=== PATIENT | female | born 1990 | race Caucasian/White ===

== ENCOUNTER 2021-03-29 13:46 | Emergency (ER) | payer BC, MEDICAID, SELFPAY ==
[2021-03-29 13:47] VITALS: BP 107/73; PULSE 81; RESP 16; TEMP 36.4; O2SAT 98; BMI 24.7
[2021-03-29 14:02] LABS: Basophils % 0.5 %; Eosinophils # 0.1 10^3/uL (0.0-0.8); Eosinophils % 1.6 %; Hematocrit 35.5 % (37.0-47.0); Hemoglobin 12.4 g/dL (11.5-15.3); Lymphocytes # 1.6 10^3/uL (0.8-4.8); Lymphocytes % 36.2 %; Mean Corpuscular HGB Conc 34.9 g/dL (30.0-36.0); Mean Corpuscular Hemoglobin 31.2 pg (28.0-34.0); Mean Corpuscular Volume 89.4 fl (81-99); Monocytes # 0.4 10^3/uL (0.2-0.9); Monocytes % 8.1 %; Neutrophils % 53.4 %; Nucleated Red Blood Cells % 0 %; Platelet Count 239 10^3/cmm (130-400); Red Blood Count 3.97 10^6/uL (4.1-5.3); Red Cell Distribution Width 11.4 % (12.1-15.1); White Blood Count 4.3 10^3/uL (4.0-10.0)
[2021-03-29 14:16] LABS: Add Urine Microscopic? NO; Charge for UA Resulting for Rev
[2021-03-29 14:36] LABS: Bilirubin Urine Neg (Negative); Blood Urine Neg (Negative); Glucose Urine UA Norm (Normal); Ketones Urine Negative (Negative); Leukocyte Esterase Urine Negative (Negative); Nitrate Urine Negative (Negative); Protein Urine Neg (Negative); Specific Gravity, Urine 1.015 (1.005-1.030); Urine Appearance Clear (CLEAR); Urine Color Yellow (Yellow); Urobilinogen Urine Norm (Negative); pH Urine 5 (5-7)
[2021-03-29 15:09] LABS: Alanine Aminotransferase 17 U/L (0-33); Albumin Level 4.4 g/dL (3.5-5.2); Alkaline Phosphatase 35 IU/L (35-105); Aspartate Amino Transferase 22 U/L (0-32); Blood Urea Nitrogen 11 mg/dL (6-20); Calcium 9.2 mg/dL (8.5-10.5); Carbon Dioxide 20 mmol/L (22-29); Creatinine Clr Calc Pharmacy 150.3134; Globulin 2.5 g/dL (1.3-4.6); Glomerular Filtration Rate 146.9 mL/min (90-130); Glucose 100 mg/dL (65-115); Total Bilirubin 0.3 mg/dL (0.15-1.2); Total Protein 6.9 g/dL (6.6-8.7)
[2021-03-29 15:20] LABS: Anion Gap 19.1 (5-19); Chloride 104 mmol/L (98-107); Osmolality Calculated 287 mOsm/kg (285-295); Potassium 4.1 mmol/L (3.5-5.1); Sodium 139 mmol/L (136-145)
--- NOTE | 2021-03-29 17:00 | ED_ITS ---
HPI - Neuro Symptoms/Deficit General: Chief Complaint: Neuro Symptoms/Deficit Stated Complaint: . Time Seen by Provider: 03/29/21 15:43 History of Present Illness: HPI Narrative: 30-year-old female arrives the emergency room complaining of yesterday having a headache there is associated slurred speech and confusion. All of the symptoms have resolved now. She has no focal neurologic deficits no specific complaints. She did contact her primary care doctor yesterday and was advised to go to the emergency room but she elected not to. No previous history of stroke. She does use CBD Gummies and states that her she tested positive for marijuana when she went to another local ER for evaluation for chest pain in the last several days. Difficulty with speech vision or hearing at this time. All of the symptoms she had yesterday have resolved Onset (ago): day(s) Location: speech History of same: No Severity: mild Quality: weak Relieving factors: none and time Exacerbating factors: none Associated symptoms: Deny chest pain, cough, diaphoresis, fevers/chills, headache(s), anorexia, malaise, nausea, seizures, short of breath, syncope, tingling, vertigo, vomiting or weakness Treatments Prior to Arrival: none Review of Systems Const: Denies: malaise or diaphoresis ENMT: Denies: throat pain, ear or mastoid pain, nasal discharge or nasal congestion Card: Denies: chest pain or syncope Resp: Denies: dyspnea, productive cough or non-productive cough GI: Denies: nausea or vomiting : Denies: flank pain, difficulty voiding, dysuria, urinary frequency or urinary urgency Skin/Breast: Denies: rash or pruritus Neuro: Denies: headache(s) or vertigo [facility] Female Reproductive History: Date of last menstrual period: 02/13/21 NIH stroke score NIHSS: Level Of Consciousness - 1a: 0 Level Of Consciousness Questions - 1b: Both Correct Level Of Consciousness Commands - 1c: Both Correct Best Gaze - 2: Normal Visual Ware - 3: No Visual Loss Facial Palsy - 4: Normal Motor Arm Right - 5: No Drift Motor Arm Left - 5: No Drift Motor Leg Right - 6: No Drift Motor Leg Left - 6: No Drift Limb Ataxia - 7: Absent Sensory - 8: Normal Best Language - 9: No Aphasia Dysarthia - 10: Normal Extinction And Inattention - 11: 0 Score: Total Score: 0 Physical Exam Const: COMMON NORMALS: no acute distress GENERAL APPEARANCE: cooperative and comfortable ORIENTATION/CONSCIOUSNESS: Yes awake, Yes oriented to person, Yes oriented to place and Yes oriented to time HENMT: COMMON NORMALS: normocephalic, atraumatic, hearing grossly normal bilaterally, external ears normal, EAC's normal, TM's normal bilaterally, Normal nasal mucous membranes and turbinates present, moist oral mucous membranes and oropharynx normal HEAD & SCALP: normocephalic and atraumatic NOSE: Normal nasal mucous membranes and turbinates present EXTERNAL EAR: Yes external ears normal EXTERNAL AUDITORY CANAL: EAC's normal TYMPANIC MEMBRANE: TM's normal bilaterally Eye: COMMON NORMALS: Equal, round and reactive pupils present, EOMs intact bilaterally, conjunctivae normal and no scleral icterus CONJUNCTIVA: Yes conjunctivae normal PUPIL: Yes Equal, round and reactive pupils present Neck/C-Spine: COMMON NORMALS: no lymphadenopathy, supple and no JVD Resp: COMMON NORMALS: normal respiratory effort, No retractions, No use of accessory muscles and clear to auscultation bilaterally AUSCULTATION: clear to auscultation bilaterally Cardio: COMMON NORMALS: no JVD, regular rate, regular rhythm and No murmurs present (Cardio) RATE: regular rate RHYTHM: regular rhythm GI: COMMON NORMALS: Soft to palpation and No hepatosplenomegaly present AUSCULTATION: Yes normoactive bowel sounds PALPATION: Yes Soft to palpation, No Tenderness to palpation present (GI), No Guarding due to palpation present (GI) and Yes No hepatosplenomegaly present Extremity: COMMON NORMALS: normal to inspection, capillary refill normal, no clubbing, cyanosis or edema, no calf tenderness and no pedal edema Neuro: SENSORIUM/ORIENTATION: Yes oriented to person, Yes oriented to place and Yes oriented to time Skin: COMMON NORMALS: no rashes or lesions noted GENERAL SKIN EXAM: no rashes or lesions noted Course Vital Signs: Vital signs: Vital Signs Temperature 97.5 F L 03/29/21 13:47 Pulse Rate 76 03/29/21 18:21 Respiratory Rate 17 03/29/21 18:21 Blood Pressure 105/72 03/29/21 18:21 Pulse Oximetry 98 03/29/21 18:21 MDM - Neuro Symptoms/Deficit MDM Narrative: Medical decision making narrative: Labs and imaging reviewed is found in the chart. Patient appears to have had a migraine variant she has no headache now no other symptoms CT is unremarkable encouraged her to follow-up with her primary care provider if this persist she may need more advanced imaging or neurologic referral or referral. Lab Data: Labs: Lab Results 03/29/21 03/29/21 03/29/21 13:56 13:57 13:57 WBC 4.3 10^3/uL 10^3/ uL (4.0-10.0) RBC 3.97 10^6/uL L 10 ^6/uL (4.1-5.3) Hgb 12.4 g/dL g/dL (11.5-15.3) Hct 35.5 % L % (37.0-47.0) MCV 89.4 fl fl (81-99) MCH 31.2 pg pg (28.0-34.0) MCHC 34.9 g/dL g/dL (30.0-36.0) RDW 11.4 % L % (12.1-15.1) Plt Count 239 10^3/cmm 10^3 /cmm (130-400) MPV 9.0 fL fL (7.4-10.4) Neut % (Auto) 53.4 % % Lymph % (Auto) 36.2 % % [place] % (Auto) 8.1 % % Eos % (Auto) 1.6 % % Baso % (Auto) 0.5 % % Neut # (Auto) 2.30 10^3/uL 10^3 /uL (1.8-7.7) Lymph # (Auto) 1.6 10^3/uL 10^3/ uL (0.8-4.8) [place] # (Auto) 0.4 10^3/uL 10^3/ uL (0.2-0.9) Eos # (Auto) 0.1 10^3/uL 10^3/ uL (0.0-0.8) Baso # (Auto) 0.0 10^3/uL 10^3/ uL (0.0-0.1) Nucleated RBC % (a uto) 0 % % Nucleated RBCs # 0.0 /100WBC /100W BC Sodium 139 mmol/L mmol/L (136-145) Potassium 4.1 mmol/L mmol/L (3.5-5.1) Chloride 104 mmol/L mmol/L (98-107) Carbon Dioxide 20 mmol/L L mmol/ L (22-29) Anion Gap 19.1 H (5-19) BUN 11 mg/dL mg/dL (6-20) Creatinine 0.5 mg/dL mg/dL (0.5-0.9) GFR Calculation 146.9 mL/min H mL /min (90-130) Glucose 100 mg/dL mg/dL (65-115) Calculated Osmolal ity 287 mOsm/kg mOsm/ kg (285-295) Calcium 9.2 mg/dL mg/dL (8.5-10.5) Total Bilirubin 0.3 mg/dL mg/dL (0.15-1.2) AST 22 U/L U/L (0-32) ALT 17 U/L U/L (0-33) Alkaline Phosphata se 35 IU/L IU/L (35-105) Total Protein 6.9 g/dL g/dL (6.6-8.7) Albumin 4.4 g/dL g/dL (3.5-5.2) Globulin 2.5 g/dL g/dL (1.3-4.6) Urine Color Yellow (Yellow) Urine Appearance Clear (CLEAR) Urine pH 5 (5-7) Ur Specific Gravit y 1.015 (1.005-1.030) Urine Protein Neg (Negative) Urine Glucose (UA) Norm (Normal) Urine Ketones Negative (Negative) Urine Blood Neg (Negative) Urine Nitrate Negative (Negative) Urine Bilirubin Neg (Negative) Urine Urobilinogen Norm mg/dL mg/dL (Negative) Ur Leukocyte Unique ase Negative (Negative) Discharge Plan Discharge Patient Disposition: Home Clinical Impression: Migraine variant Condition: Stable Discharge Orders: Discharge ED (Routine); Ordered 03/29/21 Ordered By: Nelson Brown Discharge Diet: Usual diet Discharge Activity: Resume usual activity Patient Instructions: Opioid Safety Activity Restrictions/Additional Instructions: This management will call to make arrangements for her to follow-up with a primary care physician. Coding Level of Care Code ED Fireworks Maker for Cynthia Martin
--- NOTE | 2021-03-29 17:00 | CTR_ITS ---
PROCEDURE INFORMATION: Exam: CT Head Without Contrast Exam date and time: 03/29/2021 5:00 PM Age: 30 years old Clinical indication: Other: Elevated BP; Additional info: Headache/weakness TECHNIQUE: Imaging protocol: Computed tomography of the head without contrast. Radiation optimization: All CT scans at this facility use at least one of these dose optimization techniques: automated exposure control; mA and/or kV adjustment per patient size (includes targeted exams where dose is matched to clinical indication); or iterative reconstruction. COMPARISON: No relevant prior studies available. RADIATION DOSE METRICS: Total DLP (mGy-cm): 826.17 FINDINGS: Brain: Normal. No hemorrhage. Unremarkable white matter. No mass effect. Cerebral ventricles: No ventriculomegaly. Paranasal sinuses: Visualized sinuses are unremarkable. No fluid levels. Mastoid air cells: Visualized mastoid air cells are well aerated. Bones/joints: Unremarkable. No acute fracture. Soft tissues: Unremarkable. CT/CT head wo con* [id number] IMPRESSION: No acute intracranial abnormality.
[2021-03-29 18:21] VITALS: BP 105/72; PULSE 76; RESP 17; O2SAT 98
--- NOTE | 2021-04-09 15:36 | DCPLANNER ---
manager audio had message to speak with patient about getting established and scheduling a follow up appointment with a primary care physician. manager audio unable to speak with patient at this time.
== END 2021-03-29 18:23 | disposition home or self-care (01) ==
PROVIDERS: Family Medicine; Emergency Provider Emergency Medicine
DX: G43.809 Other migraine, not intractable, without status migrainosus (principal)
CPT/HCPCS: 36415; 70450; 80053; 81003; 85025; 99283

== ENCOUNTER → 2021-09-12 13:46 | Outpatient (BNVA) | payer BC, MEDICAID, SELFPAY | PROVIDERS: Referring Provider Nurse Practitioner Family; Visit Provider Specialist | DX: S62.357A Nondisplaced fracture of shaft of fifth metacarpal bone, left hand, initial encounter for closed fracture (principal); W22.8XXA Striking against or struck by other objects, initial encounter; M79.642 Pain in left hand | CPT/HCPCS: 26600; 73130; 99203 ==

== ENCOUNTER 2021-09-12 15:58 | Outpatient (CLI) | payer BC, MEDICAID, SELFPAY | END 2021-09-12 15:59 | disposition home or self-care (01) | LOC: SPT 15:58 | PROVIDERS: Visit Provider Specialist | DX: Z46.89 Encounter for fitting and adjustment of other specified devices (principal); S62.347D Nondisplaced fracture of base of fifth metacarpal bone, left hand, subsequent encounter for fracture with routine healing; X58.XXXD Exposure to other specified factors, subsequent encounter | CPT/HCPCS: 97760; L3984 ==

== ENCOUNTER → 2021-10-10 11:40 | Outpatient (BNVA) | payer BC, MEDICAID, SELFPAY | PROVIDERS: Visit Provider Specialist | DX: R76.8 Other specified abnormal immunological findings in serum (principal); Z11.59 Encounter for screening for other viral diseases; M25.50 Pain in unspecified joint; R53.83 Other fatigue; S62.357A Nondisplaced fracture of shaft of fifth metacarpal bone, left hand, initial encounter for closed fracture; W22.8XXA Striking against or struck by other objects, initial encounter; S62.307A Unspecified fracture of fifth metacarpal bone, left hand, initial encounter for closed fracture | CPT/HCPCS: 73130; 82550; 82784; 83516; 83735; 84100; 85651; 86140; 86704; 86803; 87340; 99024; 99203; 99204 ==

== ENCOUNTER 2021-12-08 08:30 | Emergency (ER) | payer OTHER, BC, MEDICAID, SELFPAY ==
[2021-12-08 08:33] VITALS: BP 115/76; PULSE 86; RESP 16; TEMP 36.8; O2SAT 100; BMI 24.7
--- NOTE | 2021-12-08 08:38 | PC.NURSE ---
Pt reports she is 9 weeks and is having mild intermittent abdominal cramping starting today. denies any vaginal bleeding. reports hx of miscarriage and that this feels the same. Denies dysuria, fevers, or vomiting. reports nausea. LBM 12/07/21. Pt speech clear, speaking in complete sentences without difficulty. skin is pink/warm/dry. physician at bedside for bedside ultrasound.
--- NOTE | 2021-12-08 08:42 | ED_ITS ---
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 Associated Symptoms: Denies chills, diarrhea, dysuria, fever(s), nausea and vomiting Related Data: Date of Last Menstrual Period: 02/13/21 Review of Systems Const: Denies: fever(s), chills, body aches or change in appetite Eyes: Denies: blurry vision or eye discomfort ENMT: Denies: throat pain or dental pain Card: Denies: chest pain Resp: Denies: dyspnea GI: Denies: abdominal pain, nausea, vomiting or diarrhea : Denies: dysuria Musc: Denies: neck pain or back pain Skin/Breast: Denies: rash Neuro: Denies: headache(s) Psych: Denies: depression Jarek/Lymph: Denies: easy bruising All/Imm: Denies: urticaria PFSH ED PFSH: Medical History (Updated 12/08/21 @ 08:42 by Ag Delgado MD) Asthma Family History Father Hypertension Social History Smoking and tobacco status: never smoked Second hand smoke exposure: No Smoking risk assessment/counseling performed?: No Alcohol intake: current Alcohol intake frequency: 3 or more drinks per day Alcohol type: other Desire information about alcohol rehabilitation?: No Counseling given: No Adopted: No Caregiver/support person: Yes Lives independently: No Household members: spouse and children Housing: House Marital status: Number of children: 3 Highest education level completed: Associate Degree: Academic Program service: No Current occupational status: unemployed Current occupational exposures/hazards: No Pets and animals: Yes History of recent travel: No Sexually active: Yes Current gender identity: Female Special ashwin needs: No Agree to transfusion: Yes Female Reproductive History: Date of last menstrual period: 02/13/21 Physical Exam Const: COMMON NORMALS: no acute distress, patient oriented x3 and healthy appearing HENMT: COMMON NORMALS: normocephalic and atraumatic HEAD & SCALP: normocephalic and atraumatic Eye: COMMON NORMALS: Equal, round and reactive pupils present and EOMs intact bilaterally PUPIL: Yes Equal, round and reactive pupils present Neck/C-Spine: COMMON NORMALS: full ROM and supple Chest: COMMONS NORMALS: normal inspection of the chest and normal palpation of entire chest wall Resp: COMMON NORMALS: normal respiratory effort, No retractions, No use of accessory muscles and clear to auscultation bilaterally AUSCULTATION: clear to auscultation bilaterally Cardio: COMMON NORMALS: regular rate, regular rhythm and No murmurs present (Cardio) RATE: regular rate RHYTHM: regular rhythm GI: COMMON NORMALS: Normal to inspection, nondistended, normoactive bowel sounds present, Soft to palpation, non-tender and no masses PALPATION: Yes Soft to palpation Extremity: COMMON NORMALS: normal to inspection and full ROM Neuro: COMMON NORMALS: patient oriented x3, moves all extremities and no focal motor deficits Psych: COMMON NORMALS: mental status grossly normal, Normal thought process present and cooperative THOUGHT PROCESS: Normal thought process present Skin: COMMON NORMALS: no rashes or lesions noted and no wounds GENERAL SKIN EXAM: no rashes or lesions noted Course Vital Signs: Vital signs: Vital Signs Temperature 98.2 F 12/08/21 08:33 Pulse Rate 86 12/08/21 08:33 Respiratory Rate 16 12/08/21 08:33 Blood Pressure 115/76 12/08/21 08:33 Pulse Oximetry 100 12/08/21 08:33 Oxygen Delivery Me thod 12/08/21 08:33 MDM - Abdominal Pain Medical Decision Making Patient presents here with abdominal pain likely some round ligament pain she is mainly concerned as she has had 2 previous miscarriages bedside ultrasound here showed an IUP consistent with dates heart rate 146 she has no tenderness on exam no urinary symptoms no bleeding no signs of appendicitis she is stable for discharge she sees her OB next Friday she is to follow-up then return if worsening she understands agrees plan. Discharge Plan Discharge Patient Disposition: Home Clinical Impression: Abdominal pain affecting Condition: Stable Prescriptions: No Action CBD gummies PO naproxen 500 mg tablet 500 mg PO BID (DME) Fast form cast See Rx Instructions .ROUTE .MEDSUPPLY Qty: 1 0RF Rx Instructions: As directed hydroxychloroquine 200 mg tablet 200 mg PO BID Qty: 60 1RF Discharge Orders: Discharge ED (Routine); Ordered 12/08/21 Ordered By: Ag Delgado Referrals: Corina Powell DO [Primary Care Provider] - Discharge Diet: Advance as tolerated Discharge Activity: Resume usual activity Patient Instructions: Abdominal Pain (ED) Coding Level of Care Code ED Land Le[employer] Information Clerk for Cynthia Martin
[2021-12-08 08:54] VITALS: BP 102/56; PULSE 81; RESP 16; O2SAT 98
== END 2021-12-08 08:55 | disposition home or self-care (01) ==
PROVIDERS: Emergency Provider Emergency Medicine; PCP Family Medicine
DX: O26.891 Other specified pregnancy related conditions, first trimester (principal); R10.9 Unspecified abdominal pain; Z3A.09 9 weeks gestation of pregnancy
CPT/HCPCS: 99283

== ENCOUNTER → 2021-12-21 13:20 | Outpatient (BNVA) | payer OTHER, BC, MEDICAID, SELFPAY | PROVIDERS: PCP Family Medicine; Visit Provider Obstetrics & Gynecology | DX: Z34.90 Encounter for supervision of normal pregnancy, unspecified, unspecified trimester (principal) | CPT/HCPCS: 80307; 84315; 87086 ==

== ENCOUNTER → 2022-01-10 14:00 | Outpatient (BNVA) | payer OTHER, BC, MEDICAID, SELFPAY | PROVIDERS: PCP Family Medicine; Visit Provider Obstetrics & Gynecology | DX: O09.899 Supervision of other high risk pregnancies, unspecified trimester (principal); Z3A.00 Weeks of gestation of pregnancy not specified | CPT/HCPCS: 80307; 81000; 84315; 84443; 85025; 86592; 86762; 86803; 86850; 86900; 87086; 87340; 87491; 87591; 87661; 87806; 88175 ==

== ENCOUNTER → 2022-03-01 10:00 | Outpatient (BNVA) | payer BC, MEDICAID, SELFPAY | PROVIDERS: PCP Family Medicine; Visit Provider Obstetrics & Gynecology | DX: O09.899 Supervision of other high risk pregnancies, unspecified trimester (principal); Z3A.00 Weeks of gestation of pregnancy not specified | CPT/HCPCS: 81000 ==

== ENCOUNTER → 2022-03-22 09:00 | Outpatient (BNVA) | payer BC, MEDICAID, SELFPAY | PROVIDERS: PCP Family Medicine; Visit Provider Obstetrics & Gynecology | DX: O09.899 Supervision of other high risk pregnancies, unspecified trimester (principal); Z3A.00 Weeks of gestation of pregnancy not specified | CPT/HCPCS: 81000 ==

== ENCOUNTER 2022-04-14 22:25 | Emergency (ER) | payer BC, MEDICAID, SELFPAY ==
[2022-04-14 22:39] VITALS: BP 103/73; PULSE 128; RESP 18; TEMP 36.7; O2SAT 100
[2022-04-14 22:57] VITALS: BP 116/78; PULSE 124; RESP 23; O2SAT 100
--- NOTE | 2022-04-14 22:57 | CTR_ITS ---
PROCEDURE INFORMATION: Exam: CT Head Without Contrast Exam date and time: 04/15/2022 12:14 AM Age: 31 years old Clinical indication: Altered mental status/memory loss and other: 29 weeks ; Additional info: AMS in patient TECHNIQUE: Imaging protocol: Computed tomography of the head without contrast. Radiation optimization: All CT scans at this facility use at least one of these dose optimization techniques: automated exposure control; mA and/or kV adjustment per patient size (includes targeted exams where dose is matched to clinical indication); or iterative reconstruction. COMPARISON: CT head wo con* [id number] 03/29/2021 5:09 PM RADIATION DOSE METRICS: Total DLP (mGy-cm): 1013.28 FINDINGS: Brain: Normal. No hemorrhage. Unremarkable white matter. No mass effect. Cerebral ventricles: No ventriculomegaly. Paranasal sinuses: Visualized sinuses are unremarkable. No fluid levels. Mastoid air cells: Visualized mastoid air cells are well aerated. Bones/joints: Unremarkable. No acute fracture. Soft tissues: Unremarkable. CT/CT head wo con* [id number] IMPRESSION: No acute intracranial abnormality.
--- NOTE | 2022-04-14 22:57 | XRR_ITS ---
PROCEDURE INFORMATION: Exam: XR Chest Exam date and time: 04/15/2022 12:26 AM Age: 31 years old Clinical indication: Other: AMS / 29 week ; Patient HX: AMS in 29 week - shielded abd TECHNIQUE: Imaging protocol: Radiologic exam of the chest. Views: 1 view. COMPARISON: No relevant prior studies available. FINDINGS: Lungs: Unremarkable. No consolidation. Pleural spaces: Unremarkable. No pleural effusion. No pneumothorax. Heart/Mediastinum: Unremarkable. No cardiomegaly. Bones/joints: Unremarkable. XR/XR chest 1V portable [id number] IMPRESSION: No acute findings.
--- NOTE | 2022-04-14 22:59 | USR_ITS ---
PROCEDURE INFORMATION: Exam: US Biophysical Profile Without Non-Stress Test Exam date and time: 04/14/2022 11:26 PM Age: 31 years old Clinical indication: Other: Non responsive mother; ; Additional info: Altered mental status in patient 28wks cramping TECHNIQUE: Imaging protocol: US biophysical profile without non-stress testing. COMPARISON: US OB >= 14 weeks fetus [facility] 02/08/2022 2:56 PM FINDINGS: heart rate: 150 bpm presentation: Breech Placenta: Posterior placenta . Amniotic fluid: Amniotic fluid volume is normal. Amniotic fluid index: ITZ is 14.4 cm. BIOPHYSICAL PROFILE: breathing movement (BPP): 2/2 body movement (BPP): 2/2 tone (BPP): 2/2 Amniotic fluid (BPP): 2/2 Biophysical profile score (BPP): 8/8 MATERNAL ANATOMY: Cervix: Cervical length measures 4.5 cm. US/US OB BPP wo NST [id number] IMPRESSION: 1. Normal biophysical profile score 8/8. 2. Closed 4.5 cm cervix. 3. heart beat 150 bpm. 4. Normal 14.4 cm amniotic fluid index. 5. Posterior placenta. 6. Closed 4.5 cm cervix.
[2022-04-14 23:14] LABS: Basophils % 0.3 %; Eosinophils # 0.1 10^3/uL (0.0-0.8); Eosinophils % 0.7 %; Hematocrit 34.6 % (37.0-47.0); Hemoglobin 11.9 g/dL (11.5-15.3); Lymphocytes # 2.3 10^3/uL (0.8-4.8); Lymphocytes % 30.5 %; Mean Corpuscular HGB Conc 34.4 g/dL (30.0-36.0); Mean Corpuscular Hemoglobin 31.2 pg (28.0-34.0); Mean Corpuscular Volume 90.8 fl (81-99); Mean Platelet Volume 9.6 fL (7.4-10.4); Monocytes # 0.7 10^3/uL (0.2-0.9); Monocytes % 9.2 %; Neutrophils # 4.41 10^3/uL (1.8-7.7); Neutrophils % 58.8 %; Nucleated Red Blood Cells % 0 %; Platelet Count 235 10^3/cmm (130-400); Red Blood Count 3.81 10^6/uL (4.1-5.3); White Blood Count 7.5 10^3/uL (4.0-10.0)
[2022-04-14] MEDS: midazolam 1 mg/mL INJ 2 mL 2 MG IVP (23:18)
[2022-04-14] MEDS: sodium chloride 0.9% 1,000 ML 999 ML IV (23:18)
[2022-04-14] MEDS: magnesium sulfate premix 4 GM/100 ML PREMIX IV (23:19)
--- NOTE | 2022-04-14 23:21 | ECG_ITS ---
[facility] Test Date: 2022-04-14 Pat Name: Mariah Cadet Department: Room: Gender: Female Food Products Tester: : 1990 Requested By: Juan C Haider Order Number: [id number] MD: Shashank Roche M.D. Measurements Intervals [place] Rate: 108 P: 39 HI: 170 QRS: 11 QRSD: 89 T: 15 QT: 330 QTc: 444 Interpretive Statements SINUS TACHYCARDIA No previous ECG available for comparison Electronically Signed On 04-16-2022 7:42:42 SUPERVISOR PLEATING by Shashank Roche M.D. [id number]
--- NOTE | 2022-04-14 23:27 | W.ED.AMS ---
HPI - Altered Mental Status General: Chief Complaint: Altered Mental Status Stated Complaint: sob,chills,shaking Time Seen by Provider: 04/14/22 22:52 History of Present Illness: 31-year-old female who is 28 weeks . Earlier in the evening, she complained of being scared to her . She was having chills and some shakes as well. She had been having contractions she says on and off throughout the day. She denied fever. There was no vomiting. Later this evening at home, somewhere around an hour prior to arrival, she became less responsive. She would not respond to her 's questions. She would not follow commands. She does seem to make some movements, and is hyperventilating. She presents essentially the same, hyperventilating with decreased responsiveness, not following commands. Timing confirmed by: spouse Severity: moderate Consistency of symptoms: Constant Context: other Associated symptoms: Reports other Review of Systems Const: Denies: fever(s) Eyes: Denies: change in vision ENMT: Denies: throat pain Card: Reports: chest pain (Earlier today) Resp: Denies: dyspnea, productive cough or non-productive cough GI: Denies: abdominal pain or vomiting : Denies: flank pain Skin/Breast: Denies: rash Neuro: Reports: confusion, behavioral changes and seizure-like activity; Denies: headache(s) PFSH ED PFSH: Medical History Asthma Headache, variant migraine Family History Father Hypertension Heart disease Grandfather Diabetes Stroke Other Thyroid disease Denies family history of Colon cancer Ovarian cancer Hypercholesteremia Breast cancer Uterine cancer Female Reproductive History: Date of last menstrual period: 02/13/21 Physical Exam Const: GENERAL APPEARANCE: ill appearing and diaphoretic ORIENTATION/CONSCIOUSNESS: Yes patient obtunded HENMT: COMMON NORMALS: normocephalic, atraumatic and Normal external nose present HEAD & SCALP: normocephalic and atraumatic FACE & SINUS: normal facial exam and face symmetric NOSE: Normal external nose present and Normal nares present Eye: COMMON NORMALS: Equal, round and reactive pupils present and conjunctivae normal CONJUNCTIVA: Yes conjunctivae normal PUPIL: Yes Equal, round and reactive pupils present Cardio: COMMON NORMALS: regular rate and regular rhythm RATE: regular rate RHYTHM: regular rhythm GI: COMMON NORMALS: Normal to inspection, nondistended, normoactive bowel sounds present and Soft to palpation PALPATION: Yes Soft to palpation OTHER: gravid uterus Neuro: SENSORIUM/ORIENTATION: Yes obtunded CRANIAL NERVES: Yes CN normal except as noted SPEECH: abnormal speech GAIT: Yes Unable to assess gait SENSORY EXAM: Yes extremities (intact) MOTOR EXAM: Abnormal muscle tone present DEEP TENDON REFLEXES: Right patellar reflex intensity grade: 3+ and Left patellar reflex intensity grade: 3+ Course Vital Signs: Vital signs: Vital Signs Temperature 98.0 F 04/14/22 22:39 Pulse Rate 108 H 04/15/22 01:23 Respiratory Rate 18 04/15/22 01:23 Blood Pressure 107/62 04/15/22 01:23 Pulse Oximetry 98 04/15/22 01:23 Oxygen Delivery Me thod 04/14/22 23:59 Oxygen Flow Rate 3 04/14/22 23:59 MDM - Altered Mental Status Medical Decision Making This is a patient with decreased responsiveness, not verbalizing or answering questions, not following commands. This has improved to some degree as time has gone on here in the ER. She presents tachycardic in the 120s. Blood pressures in the 1 teens to 120s. She is hyperreflexive on exam, that is significant. She has the appearance of a young lady who is postictal to some degree. She was given midazolam 2 mg initially IV with improvement in the hyper reflexive nests as well as the intermittent shaking she is experiencing. She is placed on 4 g magnesium sulfate bolus as well. Biophysical profile is done, and is normal. Fetus heart rate is 150s CBC is normal. Liver enzymes are normal. Uric acid is pending. Magnesium is 1.9. She is seen in conjunction with our review scheduling coordinator on-call. There is some concern given the hyperreflexive numbness, shakiness, and postictal appearing state that this could be an eclamptic patient. We are not a high school football coach center should this young lady need to deliver. We have spoken with [facility]. We are awaiting a callback. Spoke with Dr. Maldonado at [facility] she has agreed to take in transfer to L&D there. Patient is much improved clinically. She is having full conversations at this point with our OB team in the room. Fetus continues to look good on the monitor. EMS is on the way for transfer Lab Data 04/14/22 22:52 04/14/22 22:52 Radiology Impressions Chest X-Ray 04/14/22 22:57 IMPRESSION: No acute findings. Head CT 04/14/22 22:57 IMPRESSION: No acute intracranial abnormality. Obstetrics US/Biophysical Profile 04/14/22 22:59 IMPRESSION: 1. Normal biophysical profile score 8/8. 2. Closed 4.5 cm cervix. 3. heart beat 150 bpm. 4. Normal 14.4 cm amniotic fluid index. 5. Posterior placenta. 6. Closed 4.5 cm cervix. Laboratory Results WBC 7.5 10^3/uL (4.0-10.0) 04/14/22 22:52 RBC 3.81 10^6/uL (4.1-5.3) L 04/14/22 22:52 Hgb 11.9 g/dL (11.5-15.3) 04/14/22 22:52 Hct 34.6 % (37.0-47.0) L 04/14/22 22:52 MCV 90.8 fl (81-99) 04/14/22 22:52 MCH 31.2 pg (28.0-34.0) 04/14/22 22:52 MCHC 34.4 g/dL (30.0-36.0) 04/14/22 22:52 RDW 12.0 % (12.1-15.1) L 04/14/22 22:52 Plt Count 235 10^3/cmm (130-400) 04/14/22 22:52 MPV 9.6 fL (7.4-10.4) 04/14/22 22:52 Neut % (Auto) 58.8 % 04/14/22 22:52 Lymph % (Auto) 30.5 % 04/14/22 22:52 Blount % (Auto) 9.2 % 04/14/22 22:52 Eos % (Auto) 0.7 % 04/14/22 22:52 Baso % (Auto) 0.3 % 04/14/22 22:52 Neut # (Auto) 4.41 10^3/uL (1.8-7.7) 04/14/22 22:52 Lymph # (Auto) 2.3 10^3/uL (0.8-4.8) 04/14/22 22:52 Blount # (Auto) 0.7 10^3/uL (0.2-0.9) 04/14/22 22:52 Eos # (Auto) 0.1 10^3/uL (0.0-0.8) 04/14/22 22:52 Baso # (Auto) 0.0 10^3/uL (0.0-0.1) 04/14/22 22:52 Nucleated RBC % (auto) 0 % 04/14/22 22:52 Nucleated RBCs # 0.0 /100WBC 04/14/22 22:52 Specimen Type Arterial 04/14/22 22:58 Sample Site Radial, left 04/14/22 22:58 ABG pH 7.45 (7.35-7.45) 04/14/22 22:58 ABG pCO2 29.1 mmHg (35-45) L 04/14/22 22:58 ABG pO2 138.0 mmHg (80.0-100.0) H 04/14/22 22:58 ABG HCO3 20.3 mmol/L (22-26) L 04/14/22 22:58 ABG Base Excess -2.8 mmol/L (-2.0-2.0) L 04/14/22 22:58 Amrc Test Pos 04/14/22 22:58 Hematocrit 32.9 % (37-47) L 04/14/22 22:58 O2 Delivery Device Nc 04/14/22 22:58 O2 Liters/Min 3.0 % 04/14/22 22:58 Licensed Vocational Nurse ID [email or web address] 04/14/22 22:58 Sodium 132 mmol/L (136-145) L 04/14/22 22:52 Potassium 3.6 mmol/L (3.5-5.1) 04/14/22 22:52 Chloride 100 mmol/L (98-107) 04/14/22 22:52 Carbon Dioxide 18 mmol/L (22-29) L 04/14/22 22:52 Anion Gap 17.6 (5-19) 04/14/22 22:52 BUN 7 mg/dL (6-20) 04/14/22 22:52 Creatinine 0.5 mg/dL (0.5-0.9) 04/14/22 22:52 GFR Calculation 145.9 mL/min (90-130) H 04/14/22 22:52 Glucose 141 mg/dL (65-115) H 04/14/22 22:52 Calculated Osmolality 274 mOsm/kg (285-295) L 04/14/22 22:52 Calcium 9.0 mg/dL (8.5-10.5) 04/14/22 22:52 Magnesium 1.9 mg/dL (1.7-2.3) 04/14/22 22:52 Total Bilirubin 0.2 mg/dL (0.15-1.2) 04/14/22 22:52 AST 16 U/L (0-32) 04/14/22 22:52 ALT 12 U/L (0-33) 04/14/22 22:52 Alkaline Phosphatase 45 U/L (35-105) 04/14/22 22:52 Total Protein 6.7 g/dL (6.6-8.7) 04/14/22 22:52 Albumin 4.0 g/dL (3.5-5.2) 04/14/22 22:52 Globulin 2.7 g/dL (1.3-4.6) 04/14/22 22:52 Urine Color Yellow (Yellow) 04/15/22 00:04 Urine Appearance Clear (CLEAR) 04/15/22 00:04 Urine pH 8 (5-7) H 04/15/22 00:04 Ur Specific [place] 1.015 (1.005-1.030) 04/15/22 00:04 Urine Protein Neg (Negative) 04/15/22 00:04 Urine Glucose (UA) Norm (Normal) 04/15/22 00:04 Urine Ketones Negative (Negative) 04/15/22 00:04 Urine Blood Neg (Negative) 04/15/22 00:04 Urine Nitrate Negative (Negative) 04/15/22 00:04 Urine Bilirubin Neg (Negative) 04/15/22 00:04 Prot Sulfosalicylic Acd Negative (Negative) 04/15/22 00:04 Urine Urobilinogen Neg mg/dL (Negative) 04/15/22 00:04 Ur Leukocyte Esterase Negative (Negative) 04/15/22 00:04 Urine Creatinine 34 mg/dL (28-217) 04/15/22 00:04 Urine Total Protein 4.0 mg/dL (0.0-20.0) 04/15/22 00:04 Urine Opiates Screen Negative ng/mL (Negative) 04/15/22 00:04 Ur Barbiturates Screen Negative ng/mL (Negative) 04/15/22 00:04 Ur Phencyclidine Scrn Negative ng/mL (Negative) 04/15/22 00:04 Ur Amphetamines Screen Negative ng/mL (Negative) 04/15/22 00:04 U Benzodiazepines Scrn Negative ng/mL (Negative) 04/15/22 00:04 Urine Cocaine Screen Negative ng/mL (Negative) 04/15/22 00:04 U Marijuana (THC) Screen Positive ng/mL (Negative) H 04/15/22 00:04 Ethyl Alcohol < 10 mg/dL (0-10) 04/14/22 22:52 Critical Care Time Critical Care Time: Critical Care Time: Yes Total Critical Care Time: 45 Attestation: This case had a high probability of a clinically significant, sudden, or life threatening deterioration of this patient's condition which required my full and direct attention, intervention and personal management. time is independent of any procedures performed. Discharge Plan Discharge Patient Disposition: Xfer Short-Term Hosp Clinical Impression: Generalized seizure Condition: Stable Referrals: Corina Powell DO [Primary Care Provider] - Coding Level of Care Code ED Recruiter for Chg Fwd Exam Detailed
[2022-04-14 23:29] VITALS: BP 109/69; PULSE 117; RESP 22; O2SAT 99
[2022-04-14 23:29] LABS: ABG PCO2 29.1 mmHg (35-45); ABG PH Result 7.45 (7.35-7.45); Arterial Blood Gas Hematocrit 32.9 % (37-47); Base Excess ABG -2.8 mmol/L (-2.0-2.0); Blood Gas Allen Test Pos; Blood Gas Sample Site Radial, left; Blood Gas Sample Type Arterial; HCO3 ABG 20.3 mmol/L (22-26); Oxygen Device NC
[2022-04-14] MEDS: dexamethasone 10 mg/mL INJ IM (23:34)
[2022-04-14 23:36] LABS: Alanine Aminotransferase 12 U/L (0-33); Alcohol Level < 10 mg/dL (0-10); Alkaline Phosphatase 45 U/L (35-105); Anion Gap 17.6 (5-19); Aspartate Amino Transferase 16 U/L (0-32); Blood Urea Nitrogen 7 mg/dL (6-20); Carbon Dioxide 18 mmol/L (22-29); Chloride 100 mmol/L (98-107); Globulin 2.7 g/dL (1.3-4.6); Glomerular Filtration Rate 145.9 mL/min (90-130); Glucose 141 mg/dL (65-115); Magnesium 1.9 mg/dL (1.7-2.3); Osmolality Calculated 274 mOsm/kg (285-295); Potassium 3.6 mmol/L (3.5-5.1); Sodium 132 mmol/L (136-145); Total Bilirubin 0.2 mg/dL (0.15-1.2); Total Protein 6.7 g/dL (6.6-8.7)
[2022-04-14 23:37] VITALS: BP 110/61; PULSE 129; RESP 22; O2SAT 99
[2022-04-14] MEDS: magnesium sulfate premix 20 GM/500 ML BAG IV (23:38)
[2022-04-14 23:59] VITALS: BP 124/61; PULSE 119; RESP 20; O2SAT 100
--- NOTE | 2022-04-15 00:02 | PC.NURSE ---
Digital Cervical Exam perform by this RN per verbal order from Dr Roland. Cervix is closed, thick, moderate consistency. No vaginal bleeding
--- NOTE | 2022-04-15 00:08 | PC.NURSE ---
patient taken to CT via stretcher by medicine tech
[2022-04-15 00:17] LABS: Add Urine Microscopic? NO; Charge for UA Resulting for Rev
--- NOTE | 2022-04-15 00:19 | PM.OBGYHP ---
Providers/Chief Complaint Admitting Physician: Rob MURPHY Primary LEGAL SPECIALIST: Dm BOOTH Primary Care Provider: Corina Powell DO Chief Complaint: sob,chills,shaking HPI LEGAL SPECIALIST History of Present Illness Mariah Cadet is a 31 year old female [id number] at 28wk IUP with AVERY 07/09/22 by 10wk . Pt seen in ER after presenting with who c/o pt having SOB, shaking at home with decrease ability to communicate in the car on the way to hospital. He states she c/o of getting very scared when all this occurred at home. states pt has been dread at home the last 3-4 days, denies LOF or vaginal bleeding. Upon observing pt in ER she appeared postictal, with upper and lower ext tremors, and unable to answer questions. her eyes were slightly open. Her Abd. soft, fundus appropriate for 28 wk IUP. Ext no edema with hyper-reflexia bilateral patellas.No clonus, No posturing noted. In talking with pt she would tremor as if going to have seizure. Pt serial BP all normal, as were her initial Labs, BPP 8/8 with low lying placenta without sign of bleeding. ECG-sinus Tach. UDS and Urine P/C ratio, and uric acid pending. O2 sat 100%. Present Details Date of Last Menstrual Period: 02/13/21 Calculated Date of Delivery: 11/20/21 Gestational Age Based on Last Menstrual Period: 62 Review of Systems Narrative: Pt unable to respond. Medications/Allergies Home Medications Medication Instructions Recorded Confirmed Last Taken Type CBD gummies PO 10/10/21 03/21/22 Unknown History lactobacillus combination no.4 3 3,000 mmu cells PO DAILY 12/21/21 03/21/22 Unknown History billion cell capsule (Probiotic) prenat.vits,dianne,edi-[id number] 1 tab PO DAILY 01/10/22 03/21/22 Unknown History Allergies Allergy/AdvReac Type Severity Reaction Status Date / Time Sulfa (Sulfonamide Allergy Unknown Verified 03/21/22 13:49 Antibiotics) PFSH LEGAL SPECIALIST PFSH: Medical History Asthma Headache, variant migraine Family History Father Hypertension Heart disease Grandfather Diabetes Stroke Other Thyroid disease Denies family history of Colon cancer Ovarian cancer Hypercholesteremia Breast cancer Uterine cancer History History History 6 Term 3 0 Miscarriages/Ectopic 2 Living Children 3 Care AVERY Calculator Estimated Delivery Date Method Current WG Current Estimate 07/02/22 LMP (Certain) 28w 6d Other Estimates 07/09/22 Ultrasound #1 27w 6d Vitals/I&O/Wt Last Vital Signs Temp 98.0 F 04/14/22 22:39 Pulse 119 H 04/14/22 23:59 Resp 20 H 04/14/22 23:59 BP 124/61 04/14/22 23:59 Pulse Ox 100 04/14/22 23:59 O2 Del Method 04/14/22 23:59 O2 Flow Rate 3 04/14/22 23:59 04/14/22 04/14/22 04/15/22 14:59 22:59 06:59 Intake Total 1100 / 1100 Balance 1100 / 1100 Weight last 48 hrs Weight 58.967 kg Physical Exam Const: GENERAL APPEARANCE: well developed OTHER: appears to have upper and lower ext. tremors, possibly postictal. Very hgh startle response with verbal stimulation. Chest: COMMONS NORMALS: normal inspection of the chest Resp: COMMON NORMALS: normal respiratory effort and clear to auscultation bilaterally Cardio: COMMON NORMALS: no JVD, regular rate and regular rhythm OTHER: +Murmur Back/Pelvis: OTHER: PE- no bleeding noted. Cervix closed Extremity: NARRATIVE EXTREMITY EXAM: no edemal, bilat Hyperrflexia Neuro: MOTOR EXAM: Tremors during motor activity present DEEP TENDON REFLEXES: Right patellar reflex intensity grade: 3+ and Left patellar reflex intensity grade: 3+ OTHER: Pt appeared to have decreased LOC. Unable to speak, occasionally would shake head. Data 04/14/22 22:52 04/14/22 22:52 Results OB Ultrasound BPP 8/8 low lying placenta male gender FHT 130-150 A&P Assessment and plan (1) Supervision of other high-risk : Plan A. 1. 27.6 wk IUP with Decreased level of consciousness 2. Upper and lower Ext. Tremors 3. Postictal appearance but no Hx of seizures 4. Hx of Headaches 5. Normal BP 6. Recently Dx. Rheumatoid Arthritis 7. Use of CBD non Rx. P. Admit or Transfer to [facility] facility for [facility]rological Services EFM, Serial BP MgSO4 4 gm loading/2gm Maintenance Steroids-Betamethasone 12mg IM Lab Vu Cath withurometer Attestations Medical Necessity Statement*: Decreased LOC in female at 28wk gestation. Coding Level of Care Code Acute Code for Chg Fwd Diagnoses Supervision of other high-risk O09.899
[2022-04-15 00:25] LABS: Urine Appearance Clear (CLEAR); Urine Color Yellow (Yellow)
[2022-04-15 00:26] LABS: Bilirubin Urine Neg (Negative); Blood Urine Neg (Negative); Glucose Urine UA Norm (Normal); Ketones Urine Negative (Negative); Leukocyte Esterase Urine Negative (Negative); Nitrate Urine Negative (Negative); Protein Urine Neg (Negative); Specific Gravity, Urine 1.015 (1.005-1.030); Sulfosalicylic Acid Urine Negative (Negative); Urobilinogen Urine Neg (Negative); pH Urine 8 (5-7)
[2022-04-15 00:35] LABS: Urine Creatinine 34 mg/dL (28-217)
[2022-04-15 00:38] LABS: Amphetamines Screen Urine Negative (Negative); Barbiturates Screen Urine Negative (Negative); Benzodiazepines Screen Urine Negative (Negative); Cocaine Screen Urine Negative (Negative); Opiate Screen Urine Negative (Negative); PCP Screen Urine Negative (Negative); THC Screen Urine Positive (Negative)
--- NOTE | 2022-04-15 01:22 | PC.NURSE ---
[facility] arrived and report given to Idalmis Horticulture/Floriculture Teacher.
[2022-04-15 01:23] VITALS: BP 107/62; PULSE 108; RESP 18; O2SAT 98
[2022-04-15 06:44] LABS: Uric Acid 3.3 mg/dL (2.4-5.7)
== END 2022-04-15 01:36 | disposition short-term general hospital (02) ==
PROVIDERS: Emergency Provider Emergency Medicine; PCP Family Medicine
DX: O26.893 Other specified pregnancy related conditions, third trimester (principal); G40.89 Other seizures; Z3A.28 28 weeks gestation of pregnancy
CPT/HCPCS: 12345; 36600; 51702; 70450; 71045; 76819; 80053; 80306; 80307; 81003; 82570; 82803; 83010; 83735; 84156; 84550; 85025; 93005; 96365; 96366; 96372; 96375; 99285; J1100; J2250; J3475; J7030

== ENCOUNTER → 2022-04-19 11:40 | Outpatient (BNVA) | payer BC, MEDICAID, SELFPAY | PROVIDERS: PCP Family Medicine; Visit Provider Obstetrics & Gynecology | DX: O09.899 Supervision of other high risk pregnancies, unspecified trimester (principal); Z3A.00 Weeks of gestation of pregnancy not specified | CPT/HCPCS: 82950; 85025 ==

== ENCOUNTER → 2022-04-25 11:40 | Outpatient (BNVA) | payer BC, MEDICAID, SELFPAY | PROVIDERS: PCP Family Medicine; Visit Provider Obstetrics & Gynecology | DX: O09.899 Supervision of other high risk pregnancies, unspecified trimester (principal); Z3A.00 Weeks of gestation of pregnancy not specified | CPT/HCPCS: 81000 ==

== ENCOUNTER → 2022-05-10 13:00 | Outpatient (BNVA) | payer BC, MEDICAID, SELFPAY | PROVIDERS: PCP Family Medicine; Visit Provider Obstetrics & Gynecology | DX: O09.899 Supervision of other high risk pregnancies, unspecified trimester (principal); Z3A.00 Weeks of gestation of pregnancy not specified | CPT/HCPCS: 81000 ==

== ENCOUNTER 2022-05-17 09:33 | Outpatient (CLI) | payer BC, MEDICAID, SELFPAY ==
--- NOTE | 2022-05-17 09:30 | MR_ITS ---
WS: [id number] MRI BRAIN WITHOUT CONTRAST HISTORY: R56.9 - Unspecified convulsions COMPARISON: None available. TECHNIQUE: Diffusion imaging, multiplanar T1, T2 and FLAIR imaging obtained. No evidence for acute infarct or hemorrhage. Phillips-white matter differentiation is normal. No remote or acute infarcts are volume loss. Ventricles and extra-axial spaces are normal. No inferior displacement of cerebellar tonsils. The sella turcica and pituitary gland are unremarkabl e. Dural venous sinuses and cher-ae heights of Germain demonstrate no abnormality on this unenhanced studies. Paranasal sinuses: Mixed signal intensity nearly completely opacifying the RIGHT sphenoid sinus with extension into the RIGHT maxillary and ethmoid sinuses. There is mild mucoperiosteal thickening to th e frontal sinuses and LEFT ethmoid air cells. Mastoid air cells: Normal. Calvarium and scalp: Intact. MR/MR head wo con* [id number] IMPRESSION: 1. Unremarkable noncontrast MRI brain. 2. Sinusitis, greatest involving the RIGHT sphenoid, maxillary and ethmoid air cells.
== END 2022-05-17 09:34 | disposition home or self-care (01) ==
LOC: RAD 09:37
PROVIDERS: PCP Family Medicine; Visit Provider Obstetrics & Gynecology
DX: R56.9 Unspecified convulsions (principal); J32.8 Other chronic sinusitis
CPT/HCPCS: 70551; 76817

== ENCOUNTER → 2022-05-27 17:12 | Outpatient (BNVA) | payer BC, MEDICAID, SELFPAY | PROVIDERS: PCP Family Medicine; Visit Provider Nurse Practitioner Women's Health | DX: O09.899 Supervision of other high risk pregnancies, unspecified trimester (principal); Z3A.34 34 weeks gestation of pregnancy | CPT/HCPCS: 84315; 85025 ==

== ENCOUNTER 2022-06-10 10:56 | Outpatient (CLI) | payer BC, MEDICAID, SELFPAY ==
[2022-06-10 11:00] VITALS: BMI 28.3
[2022-06-10 11:13] VITALS: BP 117/70; PULSE 90
[2022-06-10 11:14] VITALS: TEMP 35.8
[2022-06-10 11:33] VITALS: BP 110/62; PULSE 90
[2022-06-10 11:41] LABS: Urine Appearance Hazy (CLEAR); Urine Color Yellow (Yellow); pH Urine 8 (5-7)
[2022-06-10 11:42] LABS: Add Urine Culture? No; Bacteria Urine 2+ /hpf; Bilirubin Urine Neg (Negative); Blood Urine Neg (Negative); Glucose Urine UA Norm (Normal); Ketones Urine Negative (Negative); Leukocyte Esterase Urine Negative (Negative); Nitrate Urine Negative (Negative); Protein Urine Neg (Negative); Sulfosalicylic Acid Urine Negative (Negative); Urobilinogen Urine Norm (Negative); WBC Urine 0-4 /hpf (0-5)
[2022-06-10 11:53] VITALS: BP 107/71; PULSE 78
[2022-06-10 12:12] VITALS: BP 107/71; PULSE 78; RESP 18
== END 2022-06-10 12:10 | disposition home or self-care (01) ==
LOC: OPOB 11:06 → OBGYN 11:09
PROVIDERS: PCP Family Medicine; Visit Provider Obstetrics & Gynecology
DX: O26.899 Other specified pregnancy related conditions, unspecified trimester (principal); Z3A.00 Weeks of gestation of pregnancy not specified; R10.9 Unspecified abdominal pain
CPT/HCPCS: 59025; 81001; 99211

== ENCOUNTER → 2022-06-21 08:09 | Outpatient (BNVA) | payer BC, MEDICAID, SELFPAY | PROVIDERS: PCP Family Medicine; Visit Provider Obstetrics & Gynecology | DX: O09.899 Supervision of other high risk pregnancies, unspecified trimester (principal); Z3A.00 Weeks of gestation of pregnancy not specified | CPT/HCPCS: 84315; 87081 ==

== ENCOUNTER 2022-06-27 12:27 | Outpatient (CLI) | payer BC, MEDICAID, SELFPAY ==
[2022-06-27] VITALS (10 sets, daily range): BP systolic 100–114; BP diastolic 60–73; PULSE 81–139; RESP 17; BMI 28.0
== END 2022-06-27 15:18 | disposition home or self-care (01) ==
LOC: OPOB 12:28 → OBGYN 12:29
PROVIDERS: PCP Family Medicine; Visit Provider Obstetrics & Gynecology
DX: O26.899 Other specified pregnancy related conditions, unspecified trimester (principal); Z3A.00 Weeks of gestation of pregnancy not specified; R10.9 Unspecified abdominal pain
CPT/HCPCS: 59025; 99211

== ENCOUNTER 2022-06-29 05:26 | Inpatient (IN) | payer BC, MEDICAID, SELFPAY ==
[2022-06-28] VITALS (8 sets, daily range): BP systolic 100–120; BP diastolic 55–76; PULSE 61–84; RESP 16; TEMP 36.7; BMI 28.3
[2022-06-28] MEDS: miSOPROStol 100 mcg tablet 25 MCG VAGINAL (20:50)
[2022-06-28 20:57] LABS: Basophils % 0.4 %; Eosinophils # 0.1 10^3/uL (0.0-0.8); Eosinophils % 1.2 %; Hematocrit 33.5 % (37.0-47.0); Hemoglobin 11.3 g/dL (11.5-15.3); Lymphocytes # 2.1 10^3/uL (0.8-4.8); Lymphocytes % 25.2 %; Mean Corpuscular HGB Conc 33.7 g/dL (30.0-36.0); Mean Corpuscular Hemoglobin 30.4 pg (28.0-34.0); Mean Corpuscular Volume 90.1 fl (81-99); Mean Platelet Volume 10.1 fL (7.4-10.4); Monocytes # 0.7 10^3/uL (0.2-0.9); Monocytes % 7.9 %; Neutrophils # 5.48 10^3/uL (1.8-7.7); Neutrophils % 64.9 %; Nucleated Red Blood Cells % 0 %; Platelet Count 220 10^3/cmm (130-400); Red Blood Count 3.72 10^6/uL (4.1-5.3); Red Cell Distribution Width 12.6 % (12.1-15.1); White Blood Count 8.4 10^3/uL (4.0-10.0)
--- NOTE | 2022-06-28 21:31 | PM.OPHPUD ---
Labor & Delivery H&P Update Date of Procedure: June 28, 2022 Date H&P Performed: 06/28/22 H&P update information: I have reviewed H&P completed within last 30 days, I have examined patient prior to procedure and No changes to prior documentation Changes to previous documentation: The patient is here for induction of labor at term Admission Diagnosis: at 39 weeks, 3 days, Related Problem List Diagnoses (1) Supervision of other high-risk : (2) LARISSA positive: (3) Polyhydramnios:
[2022-06-29] VITALS (29 sets, daily range): BP systolic 90–113; BP diastolic 54–68; PULSE 60–93; TEMP 36.7–36.8
[2022-06-29] MEDS: miSOPROStol 100 mcg tablet 25 MCG VAGINAL ×3 (01:07→10:47)
[2022-06-29 07:39] LABS: Amphetamines Screen Urine Negative (Negative); Barbiturates Screen Urine Negative (Negative); Benzodiazepines Screen Urine Negative (Negative); Cocaine Screen Urine Negative (Negative); Opiate Screen Urine Negative (Negative); PCP Screen Urine Negative (Negative); THC Screen Urine Negative (Negative)
--- NOTE | 2022-06-29 14:45 | P.PN_ITS ---
Subjective Subjective: The patient has just had her third dose of cytotec. Her cervix remains unchanged. status is overall very reassuring. Vitals/I&O/Wt Last Vital Signs Temp 98.1 F 06/29/22 05:52 Pulse 75 06/30/22 12:32 Resp 17 06/30/22 07:41 BP 101/66 06/30/22 12:32 O2 Del Method 06/30/22 09:40 06/29/22 06/30/22 06/30/22 22:59 06:59 14:59 Intake Total 14.499 / 14.499 1074.316 / 1088.815 55.333 / 55.333 Balance 14.499 / 14.499 1074.316 / 1088.815 55.333 / 55.333 Weight last 48 hrs Weight 160 lb Physical Exam Narrative: The patient has no concerns Const: COMMON NORMALS: no acute distress, average body habitus, patient o riented x3, no limitations, healthy appearing, alert and well nourished GENERAL APPEARANCE: cooperative, comfortable, well kempt and well developed ORIENTATION/CONSCIOUSNESS: Yes awake, Yes oriented to person, Yes oriented to place and Yes oriented to time Resp: COMMON NORMALS: normal respiratory effort EFFORT & INSPECTION: Yes able to speak in complete sentences GI: COMMON NORMALS: Soft to palpation and non-tender PALPATION: Yes Soft to palpation Extremity: COMMON NORMALS: no calf tenderness Neuro: COMMON NORMALS: patient oriented x3 SENSORIUM/ORIENTATION: Yes alert, Yes oriented to person, Yes oriented to place and Yes oriented to time Psych: APPEARANCE: Yes well kempt Data 06/28/22 20:32 Attestations Medical Necessity Statement*: The patient is still being induced. Coding Level of Care Code Acute Code for g Fwd
[2022-06-29] MEDS: dextrose 5%-lactated ringers 1,000 ML 125 ML IV (18:51)
[2022-06-29] MEDS: oxytocin 30 UNIT/500 ML BAG IV (18:52)
[2022-06-30] VITALS (17 sets, daily range): BP systolic 92–112; BP diastolic 54–70; PULSE 63–94; RESP 17; TEMP 36.4
[2022-06-30] MEDS: dextrose 5%-lactated ringers 1,000 ML 125 ML IV (03:05)
[2022-06-30] MEDS: miSOPROStol 100 mcg tablet 25 MCG VAGINAL ×4 (09:39→23:43)
--- NOTE | 2022-06-30 14:48 | P.PN_ITS ---
Subjective Subjective: The patient received 4 doses of cytotec and pitocin for about 18 hours. She was allowed breakfast and then cytotec was placed again. She has had a little cervical change / status is overall very reassuring Vitals/I&O/Wt Last Vital Signs Temp 98.1 F 06/29/22 05:52 Pulse 74 06/30/22 14:46 Resp 17 06/30/22 07:41 BP 107/70 06/30/22 14:46 O2 Del Method 06/30/22 09:40 06/29/22 06/30/22 06/30/22 22:59 06:59 14:59 Intake Total 14.499 / 14.499 1074.316 / 1088.815 55.333 / 55.333 Balance 14.499 / 14.499 1074.316 / 1088.815 55.333 / 55.333 Weight last 48 hrs Weight 160 lb Physical Exam Narrative: The patient and baby are doing well. She desires to continue with induction Const: COMMON NORMALS: no acute distress, average body habitus, patient oriented x3, no limitations, healthy appearing, alert and well nourished GENERAL APPEARANCE: cooperative, comfortable, well kempt and well developed ORIENTATION/CONSCIOUSNESS: Yes awake, Yes oriented to person, Yes oriented to place and Yes oriented to time Resp: COMMON NORMALS: normal respiratory effort EFFORT & INSPECTION: Yes able to speak in complete sentences GI: COMMON NORMALS: Soft to palpation and non-tender PALPATION: Yes Soft to palpation Extremity: COMMON NORMALS: no calf tenderness Neuro: COMMON NORMALS: patient oriented x3 SENSORIUM/ORIENTATION: Yes alert, Yes oriented to person, Yes oriented to place and Yes oriented to time Psych: COMMON NORMALS: mental status grossly normal, Normal thought process present, cooperative, normal affect and speech normal APPEARANCE: Yes well kempt SPEECH: Yes normal speech THOUGHT PROCESS: Normal thought process present Data 06/28/22 20:32 Attestations Medical Necessity Statement*: The patient continues with her induction Coding Level of Care Code Acute Code for [facility] Fwd
[2022-07-01] VITALS (19 sets, daily range): BP systolic 89–111; BP diastolic 50–66; PULSE 62–86; RESP 15; TEMP 36.2–36.4
[2022-07-01] MEDS: miSOPROStol 100 mcg tablet 25 MCG VAGINAL (03:51)
[2022-07-01] MEDS: oxytocin 30 UNIT/500 ML BAG IV (08:45)
--- NOTE | 2022-07-01 08:45 | PM.PN ---
Subjective Subjective: The patient has received an additional 3 doses of cytotec and had little cervical change. Vitals/I&O/Wt Last Vital Signs Temp 97.6 F 07/01/22 05:44 Pulse 77 07/01/22 08:38 Resp 15 07/01/22 07:00 BP 107/59 07/01/22 08:38 O2 Del Method 07/01/22 06:05 06/30/22 07/01/22 07/01/22 22:59 06:59 14:59 Intake Total 1250 / 1305.333 Balance 1250 / 1305.333 Physical Exam Narrative: The patient is having no pain. She is eating breakfast. She would like to try pitocin again. We discussed that we can do that and re-evaluate at 4:00, then dismiss her, if no change. We can proceed if we get her into labor. Const: COMMON NORMALS: no acute distress, average body habitus, patient oriented x3, no limitations, healthy appearing, alert and well nourished GENERAL APPEARANCE: cooperative, comfortable, well kempt and well developed ORIENTATION/CONSCIOUSNESS: Yes awake, Yes oriented to person, Yes oriented to place and Yes oriented to time Resp: COMMON NORMALS: normal respiratory effort EFFORT & INSPECTION: Yes able to speak in complete sentences GI: COMMON NORMALS: Soft to palpation and non-tender PALPATION: Yes Soft to palpation Extremity: COMMON NORMALS: no calf tenderness Neuro: COMMON NORMALS: patient oriented x3 SENSORIUM/ORIENTATION: Yes alert, Yes oriented to person, Yes oriented to place and Yes oriented to time Psych: COMMON NORMALS: mental status grossly normal, Normal thought process present, cooperative, normal affect and speech normal APPEARANCE: Yes well kempt SPEECH: Yes normal speech THOUGHT PROCESS: Normal thought process present Data 06/28/22 20:32 A&P Assessment and plan (1) Polyhydramnios: induction is stalled at 3 cm dilation. The patient wants to try a little longer Overall very reassuring status. Will try pitocin today and re-evaluate later in the afternoon. The patient may be discharged if no further cervical change. Attestations Medical Necessity Statement*: The patient has been here over 2 midnights for induction Coding Level of Care Code Acute Code for Chg Fwd Diagnoses Polyhydramnios O40.9XX0
[2022-07-01] MEDS: dextrose 5%-lactated ringers 1,000 ML 125 ML IV (08:59)
--- NOTE | 2022-07-01 16:31 | PM.DCS ---
Discharge Providers Date of Admission: 06/30/22 05:26 Date of Discharge: July 01, 2022 Attending Provider at Admission: Fabi Chaidez MD Attending Provider at Discharge: Fabi Chaidez MD Primary Care Provider: Corina Powell DO Diagnoses at Discharge Discharge Diagnosis (1) Polyhydramnios: Status: Acute Reason for Visit Reason for Visit: induction Hospital Course Hospital Course The patient was admitted for induction at term. She received cytotec, then pitocin without much cervical dilation. She again had cytotec, then pitocin. She has remained /-3/ Overall very reassuring status. She is requesting to go home and come back another time for induction. Discharge Data Studies Completed and Pending Laboratory Results WBC 8.4 10^3/uL (4.0-10.0) 06/28/22 20:32 RBC 3.72 10^6/uL (4.1-5.3) L 06/28/22 20: Hgb 11.3 g/dL (11.5-15.3) L 06/28/22 20: Hct 33.5 % (37.0-47.0) L 06/28/22 20: MCV 90.1 fl (81-99) 06/28/22 20: MCH 30.4 pg (28.0-34.0) 06/28/22 20: MCHC 33.7 g/dL (30.0-36.0) 06/28/22 20: RDW 12.6 % (12.1-15.1) 06/28/22 20: Plt Count 220 10^3/cmm (130-400) 06/28/22 20: MPV 10.1 fL (7.4-10.4) 06/28/22 20:32 Neut % (Auto) 64.9 % 06/28/22 20: Lymph % (Auto) 25.2 % 06/28/22 20: [place] % (Auto) 7.9 % 06/28/22 20: Eos % (Auto) 1.2 % 06/28/22 20: Baso % (Auto) 0.4 % 06/28/22: Neut # (Auto) 5.48 10^3/uL (1.8-7.7) 06/28/22 20:32 Lymph # (Auto) 2.1 10^3/uL (0.8-4.8) 06/28/22 20:32 [place] # (Auto) 0.7 10^3/uL (0.2-0.9) 06/28/22 20:32 Eos # (Auto) 0.1 10^3/uL (0.0-0.8) 06/28/22 20:32 Baso # (Auto) 0.0 10^3/uL (0.0-0.1) 06/28/22 20:32 Nucleated RBC % (auto) 0 % 06/28/22 20:32 Nucleated RBCs # 0.0 /100WBC 06/28/22 20:32 Urine Opiates Screen Negative ng/mL (Negative) 06/29/22 06:10 Ur Barbiturates Screen Negative ng/mL (Negative) 06/29/22 06:10 Ur Phencyclidine Scrn Negative ng/mL (Negative) 06/29/22 06:10 Ur Amphetamines Screen Negative ng/mL (Negative) 06/29/22 06:10 U Benzodiazepines Scrn Negative ng/mL (Negative) 06/29/22 06:10 Urine Cocaine Screen Negative ng/mL (Negative) 06/29/22 06:10 U Marijuana (THC) Screen Negative ng/mL (Negative) 06/29/22 06:10 Vitals Last Vital Signs Temp 97.6 F 07/01/22 14:14 Pulse 81 07/01/22 15:40 Resp 15 07/01/22 07:00 BP 91/51 07/01/22 15:40 O2 Del Method 07/01/22 06:05 Discharge Plan Discharge Patient Disposition: Home Condition: Stable Prescriptions: Continued CBD gummies PO Probiotic 3 billion cell capsule 3,000 mmu cells PO DAILY Rx Instructions: administer with a meal prenat.vits,dianne,zpt-qxua-juddu Tablet 1 tab PO DAILY Discharge Orders: Discharge Order (Routine); Ordered 07/01/22 Ordered By: Fabi Chaidez Discharge Diet: Usual diet Discharge Activity: Resume usual activity Patient Instructions: Preeclampsia During (DC), Opioid Safety, OB Undelivered Discharge Discharge Attestations Time Spent in Discharge Care*: less than 30 min Quality Metrics Clinical Quality Measures [ No reported AMI, CVA or VTE this stay] Coding Level of Care Code Acute Code for Chg Fwd Diagnoses Polyhydramnios O40.9XX0
== END 2022-07-01 16:41 | disposition home or self-care (01) | DRG 833 ==
LOC: OPOB 05:27 → OBGYN 05:29
PROVIDERS: Admitting Provider Obstetrics & Gynecology; PCP Family Medicine; Visit Provider Obstetrics & Gynecology
DX: O61.0 Failed medical induction of labor (principal); Z3A.39 39 weeks gestation of pregnancy; O40.3XX0 Polyhydramnios, third trimester, not applicable or unspecified
CPT/HCPCS: 36415; 59025; 80306; 81000; 85025; 99211; G0378; J2590; J7121

== ENCOUNTER 2022-07-03 17:30 | Inpatient (IN) | payer BC, MEDICAID, SELFPAY ==
[2022-07-03] VITALS (21 sets, daily range): BP systolic 95–123; BP diastolic 54–79; PULSE 69–95; RESP 15; TEMP 36.2; BMI 28.3
[2022-07-03] MEDS: dextrose 5%-lactated ringers 1,000 ML 125 ML IV (17:06)
[2022-07-03 17:43] LABS: Basophils % 0.3 %; Eosinophils % 0.6 %; Hematocrit 34.4 % (37.0-47.0); Hemoglobin 11.7 g/dL (11.5-15.3); Lymphocytes # 1.7 10^3/uL (0.8-4.8); Mean Corpuscular Hemoglobin 30.7 pg (28.0-34.0); Mean Corpuscular Volume 90.3 fl (81-99); Mean Platelet Volume 10.1 fL (7.4-10.4); Monocytes # 0.6 10^3/uL (0.2-0.9); Monocytes % 8.3 %; Neutrophils # 4.68 10^3/uL (1.8-7.7); Neutrophils % 66.2 %; Nucleated Red Blood Cells % 0 %; Platelet Count 193 10^3/cmm (130-400); Red Blood Count 3.81 10^6/uL (4.1-5.3); Red Cell Distribution Width 12.5 % (12.1-15.1); White Blood Count 7.1 10^3/uL (4.0-10.0)
[2022-07-04] VITALS (82 sets, daily range): BP systolic 82–124; BP diastolic 50–83; PULSE 58–135; RESP 17; TEMP 35.8–35.9; O2SAT 91–100
[2022-07-04] MEDS: dextrose 5%-lactated ringers 1,000 ML 125 ML IV ×3 (01:10→16:58)
[2022-07-04] MEDS: oxytocin 30 UNIT/500 ML BAG 600 UNIT IV (22:29)
[2022-07-04] MEDS: miSOPROStol 200 mcg Tablet 800 MCG PR (22:30)
[2022-07-04] MEDS: methylergonovine 0.2 mg/mL INJ 1 mL IM (22:40)
--- NOTE | 2022-07-04 22:51 | PM.DELIVERY ---
Delivery Note: Date of delivery: July 04, 2022 Pre-delivery diagnoses: term labor induction Post-delivery diagnoses: same Procedure: vaginal delivery Delivering Physician: Carlos Christianson M.D. Estimated blood loss (mL): 600 Delivery: , vigorous male infant normal placenta and cord cord gases and blood obtained no episiotomy or lacerations Post-Delivery Status: + moderate hemorrhage, treated with vigorous fundal massage, methergine IM x one, and cytotec 800 ug rectally History History History 6 Term 3 0 Miscarriages/Ectopic 2 Living Children 3 A&P Assessment and plan (1) Vaginal delivery: (2) hemorrhage: Coding Level of Care Code Acute Code for Chg Fwd Diagnoses Vaginal delivery O80 hemorrhage O72.1 Time Spent (min) 90
[2022-07-05] VITALS (11 sets, daily range): BP systolic 94–120; BP diastolic 51–75; PULSE 68–94; RESP 14–16; TEMP 36.3–36.7; O2SAT 95–99
[2022-07-05] MEDS: lanolin oint 7 gm 1 APPLIC TOPICAL (02:33)
[2022-07-05] MEDS: benzocaine-menthol 78 gm Canister 1 SPRAY TOPICAL (02:34)
[2022-07-05] MEDS: ferrous sulfate EC 325 mg Tablet PO (08:53)
[2022-07-05] MEDS: prenatal vitamin Capsule 1 CAP PO (08:53)
[2022-07-05] MEDS: ibuprofen 800 mg tablet PO ×3 (08:53→21:27)
[2022-07-05 11:04] LABS: Hematocrit 29.5 % (37.0-47.0); Hemoglobin 9.9 g/dL (11.5-15.3); Mean Corpuscular HGB Conc 33.6 g/dL (30.0-36.0); Mean Corpuscular Hemoglobin 30.4 pg (28.0-34.0); Mean Corpuscular Volume 90.5 fl (81-99); Mean Platelet Volume 10.2 fL (7.4-10.4); Platelet Count 216 10^3/cmm (130-400); Red Blood Count 3.26 10^6/uL (4.1-5.3); Red Cell Distribution Width 12.6 % (12.1-15.1); White Blood Count 11.5 10^3/uL (4.0-10.0)
[2022-07-06 04:21] VITALS: BP 100/64; PULSE 68; RESP 15; TEMP 36.4; O2SAT 98
[2022-07-06 09:00] VITALS: BP 112/72; PULSE 84; RESP 18; TEMP 36.4; O2SAT 100
[2022-07-06] MEDS: prenatal vitamin Capsule 1 CAP PO (10:14)
[2022-07-06] MEDS: docusate sodium 100 mg Capsule PO (10:15)
[2022-07-06] MEDS: ferrous sulfate EC 325 mg Tablet PO (10:15)
[2022-07-06] MEDS: ibuprofen 800 mg tablet PO (10:15)
--- NOTE | 2022-07-06 11:06 | P.DS_ITS ---
Discharge Providers Date of Admission: 07/03/22 17:30 Date of Discharge: July 06, 2022 Attending Provider at Admission: Blu Saavedra MD Attending Provider at Discharge: Blu Saavedra MD Primary Care Provider: Corina Powell DO Diagnoses at Discharge Discharge Diagnosis (1) Vaginal delivery: Status: Acute (2) hemorrhage: Status: Acute Reason for Visit Reason for Visit: IOL Hospital Course Hospital Course Mrs. Cadet 31-year-old female admitted to labor and delivery with estimated gestational age at 40 weeks for second attempt induction. She progressed to have a spontaneous vaginal delivery, complicated by hemorrhage. and observation was uneventful. Tolerating diet well. Ambulating without difficulty. Breast-feeding without difficulty. Patient was counseled regarding pelvic rest for 6 weeks (no sex, no tampons, no vaginal douches). Return to the emergency room if any fever, increased bleeding or pain. She had not decided with method of contraception to use. Physical Exam Narrative: GA; alert and oriented x 3 HEENT: normal Breasts: engorged Nipples - skin intact Lungs; clear to auscultation Heart: regular rhythm, no murmurs. Abd: Appropriately tender. BS+. Uterine fundus below umbilicus. No Fundal Tenderness. Perineum: normal lochia. Extremities: no edema, no cyanosis, no tenderness. Discharge Data Studies Completed and Pending Laboratory Results WBC 11.5 10^3/uL (4.0-10.0) H 07/05/22 10:45 RBC 3.26 10^6/uL (4.1-5.3) L 07/05/22 10:45 Hgb 9.9 g/dL (11.5-15.3) L 07/05/22 10:45 Hct 29.5 % (37.0-47.0) L 07/05/22 10:45 MCV 90.5 fl (81-99) 07/05/22 10:45 MCH 30.4 pg (28.0-34.0) 07/05/22 10:45 MCHC 33.6 g/dL (30.0-36.0) 07/05/22 10:45 RDW 12.6 % (12.1-15.1) 07/05/22 10:45 Plt Count 216 10^3/cmm (130-400) 07/05/22 10:45 MPV 10.2 fL (7.4-10.4) 07/05/22 10:45 Neut % (Auto) 66.2 % 07/03/22 17:00 Lymph % (Auto) 24.0 % 07/03/22 17:00 [place] % (Auto) 8.3 % 07/03/22 17:00 Eos % (Auto) 0.6 % 07/03/22 17:00 Baso % (Auto) 0.3 % 07/03/22 17:00 Neut # (Auto) 4.68 10^3/uL (1.8-7.7) 07/03/22 17:00 Lymph # (Auto) 1.7 10^3/uL (0.8-4.8) 07/03/22 17:00 [place] # (Auto) 0.6 10^3/uL (0.2-0.9) 07/03/22 17:00 Eos # (Auto) 0.0 10^3/uL (0.0-0.8) 07/03/22 17:00 Baso # (Auto) 0.0 10^3/uL (0.0-0.1) 07/03/22 17:00 Nucleated RBC % (auto) 0 % 07/03/22 17:00 Nucleated RBCs # 0.0 /100WBC 07/03/22 17:00 Vitals Last Vital Signs Temp 97.5 F L 07/06/22 09:00 Pulse 84 07/06/22 09:00 Resp 18 07/06/22 09:00 BP 112/72 07/06/22 09:00 Pulse Ox 100 07/06/22 09:00 O2 Del Method Room Air 07/06/22 09:00 Discharge Plan Discharge Patient Disposition: Home Condition: Stable Prescriptions: New docusate sodium [Colace] 100 mg capsule 100 mg PO BID Qty: 60 0RF ferrous sulfate [Iron (ferrous sulfate)] 325 mg (65 mg iron) tablet 325 mg PO BID Qty: 60 0RF acetaminophen 325 mg capsule 325 mg PO Q4H PRN (Reason: fever or pain) Qty: 60 0RF ibuprofen 800 mg tablet 800 mg PO TID PRN (Reason: pain) Qty: 60 0RF Continued CBD gummies PO Probiotic 3 billion cell capsule 3,000 mmu cells PO DAILY Rx Instructions: administer with a meal prenat.vits,dianne,[id number]-onnx-[id number] Tablet 1 tab PO DAILY Discharge Orders: Discharge Order (Routine); Ordered 07/06/22 Ordered By: Blu Saavedra Referrals: Carlos Christianson MD [Physician] - 6 Weeks ( visit) Discharge Diet: Advance as tolerated Discharge Activity: Limit activity as instructed Patient Instructions: Opioid Safety, Caring for Your Baby (GEN), Your Grampian's Appearance (GEN), Vaginal Delivery (GEN) Activity Restrictions/Additional Instructions: 1. Please call [facility] on next working day to make your post appointment in 6 weeks. 2. Please stay home until you come back to the clinic on first post-operative check up. 3. Please follow instructions on your medications CAREFULLY. 4. If you have abdominal incision, do not cover it unless dressing is necessary because of drainage. OK to shower, but avoid bath. Leave steri-strips until they fall off. If they are still on one week after surgery, you may remove them. 5. If you had vaginal surgery or vaginal repair, Dr. Saavedra may instruct you to take SITZ bath. 6. Yellow, blood tinged odorous vaginal discharge is usually normal after hysterectomy or vaginal surgeries. 7. No sexual intercourse, tampons, or douches until you are completely released from the post-operative care. 8. Avoid constipation by eating right and maybe using some Metamucil or Milk of Magnesia. 9. All prescription refills are given during the working hours. Please do no wait till it runs out. Call the clinic at [phone] before your medication runs out. The clinic will get in touch with your doctor to prescribe medications if necessary. 10. Please remain within 40 mile radius from our hospital because emergencies do happen now and then during the post-operative period. 11. If you have stairs at home, take one step at a time slowly and minimize the number of trips. It helps to stay in one floor for the next few days. No lifting except what you can lift by one hand until you are released from the post-operative care. 12. Driving is discouraged until you are well healed. It may be 3-4 weeks before you feel strong enough to drive. You should be able to turn and look through the rear window without pain and you should be able to push the brake pedal very hard without pain before you drive. No fast rules, but SAFETY should be your primary concern. DO NOT drive if you are on sedating medications such as narcotics. 13. Call the clinic (during working hours) to make urgent appointment or go to the Emergency room, if any of the following occurs: i. Vaginal bleeding becomes heavy, more than a period. ii. Incision becomes red and sore, or drains pus. iii. Your temperature is over 100.4 or you have chill. iv. IV site becomes red and swollen (a little ``knot?? is usually OK) v. Persistent nausea and vomiting vi. Persistent constipation or diarrhea vii. Rash or allergic reaction to medications. Discharge Attestations Time Spent in Discharge Care*: greater than 30 min Quality Metrics Clinical Quality Measures [ No reported AMI, CVA or VTE this stay] Coding Level of Care Code Acute Code for Chg Fwd Diagnoses Vaginal delivery O80 hemorrhage O72.1
[2022-07-06 13:25] VITALS: BP 108/62; PULSE 72; RESP 18; TEMP 36.7; O2SAT 99
== END 2022-07-06 13:25 | disposition home or self-care (01) | DRG 806 ==
LOC: OPOB 07-04 09:22 → OBGYN 07-04 09:22
PROVIDERS: Obstetrics & Gynecology; Admitting Provider Obstetrics & Gynecology; PCP Family Medicine; Visit Provider Obstetrics & Gynecology
DX: O48.0 Post-term pregnancy (principal); O72.2 Delayed and secondary postpartum hemorrhage; Z37.0 Single live birth; Z3A.40 40 weeks gestation of pregnancy
CPT/HCPCS: 36415; 59025; 59409; 81000; 85025; 85027; 96372; J2210; J2590; J7040; J7121

== ENCOUNTER → 2022-07-19 09:56 | Outpatient (BNVA) | payer BC, MEDICAID, SELFPAY | PROVIDERS: PCP Family Medicine; Visit Provider Obstetrics & Gynecology | DX: O72.1 Other immediate postpartum hemorrhage (principal) | CPT/HCPCS: 85025 ==

== ENCOUNTER 2022-11-04 16:07 | Emergency (ER) | payer BC, MEDICAID, SELFPAY ==
[2022-11-04 16:15] VITALS: BP 125/85; PULSE 79; RESP 12; TEMP 36.7; O2SAT 100; BMI 24.7
[2022-11-04 16:32] VITALS: BP 125/74; PULSE 77; RESP 14; O2SAT 100
--- NOTE | 2022-11-04 16:43 | CTR_ITS ---
PROCEDURE INFORMATION: Exam: CT Head Without Contrast Exam date and time: 11/04/2022 4:56 PM Age: 31 years old Clinical indication: Altered mental status/memory loss; Additional info: Change in mentation TECHNIQUE: Imaging protocol: Computed tomography of the head without contrast. Axial, coronal and sagittal reformatted images were created and reviewed. Radiation optimization: All CT scans at this facility use at least one of these dose optimization techniques: automated exposure control; mA and/or kV adjustment per patient size (includes targeted exams where dose is matched to clinical indication); or iterative reconstruction. REPORTING DATA: Count of CT and Cardiac NM exams in prior 12 months: This patient has received [address] and 0 known cardiac nuclear medicine studies in the 12 months prior to the current study. COMPARISON: MR head wo con* [id number] 05/17/2022 9:56 AM RADIATION DOSE METRICS: Total DLP (mGy-cm): 986.89 FINDINGS: Brain: No CT evidence of acute intracranial hemorrhage or acute territorial infarction. No significant mass effect or midline shift. Basal cisterns patent. Cerebral ventricles: Normal in size and configuration. Paranasal sinuses: Unremarkable. No fluid levels. Mastoid air cells: Grossly unremarkable. Bones/joints: No acute osseous abnormality. Soft tissues: Grossly unremarkable. CT/CT head wo con* [id number] IMPRESSION: No CT evidence of acute intracranial pathology.
[2022-11-04 17:06] LABS: Basophils % 0.5 %; Eosinophils # 0.3 10^3/uL (0.0-0.8); Eosinophils % 5.3 %; Hematocrit 40.2 % (37.0-47.0); Hemoglobin 13.8 g/dL (11.5-15.3); Lymphocytes # 2.2 10^3/uL (0.8-4.8); Lymphocytes % 35.1 %; Mean Corpuscular HGB Conc 34.3 g/dL (30.0-36.0); Mean Corpuscular Hemoglobin 30.4 pg (28.0-34.0); Mean Corpuscular Volume 88.5 fl (81-99); Mean Platelet Volume 8.9 fL (7.4-10.4); Monocytes # 0.5 10^3/uL (0.2-0.9); Monocytes % 8.4 %; Neutrophils # 3.11 10^3/uL (1.8-7.7); Neutrophils % 50.4 %; Nucleated Red Blood Cells % 0 %; Platelet Count 274 10^3/cmm (130-400); Red Blood Count 4.54 10^6/uL (4.1-5.3); Red Cell Distribution Width 12.2 % (12.1-15.1); White Blood Count 6.2 10^3/uL (4.0-10.0)
[2022-11-04 17:37] LABS: Alanine Aminotransferase 33 U/L (0-33); Albumin Level 5.1 g/dL (3.5-5.2); Alkaline Phosphatase 56 U/L (35-105); Anion Gap 19.7 (5-19); Aspartate Amino Transferase 29 U/L (0-32); Blood Urea Nitrogen 10 mg/dL (6-20); Calcium 9.9 mg/dL (8.5-10.5); Carbon Dioxide 22 mmol/L (22-29); Chloride 102 mmol/L (98-107); Globulin 3.2 g/dL (1.3-4.6); Glomerular Filtration Rate 118.2 mL/min (90-130); Glucose 102 mg/dL (65-115); Osmolality Calculated 289 mOsm/kg (285-295); Potassium 3.7 mmol/L (3.5-5.1); Sodium 140 mmol/L (136-145); Total Bilirubin 0.4 mg/dL (0.15-1.2); Total Protein 8.3 g/dL (6.6-8.7)
[2022-11-04 17:41] LABS: Add Urine Microscopic? NO; Charge for UA Resulting for Rev
--- NOTE | 2022-11-04 17:41 | PC.NURSE ---
Patient now speaking in full sentences, states she feels better and only complaint of pain at this time is arthritis pain
[2022-11-04 17:43] LABS: Acetaminophen < 5.0 ug/mL (10-30); Alcohol Level < 10 mg/dL (0-10); Salicylate < 0.3 mg/dL (3-10)
[2022-11-04 17:46] LABS: Bilirubin Urine Neg (Negative); Blood Urine Neg (Negative); Glucose Urine UA Norm (Normal); HCG Qualitative Urine. Negative (Negative); Ketones Urine Negative (Negative); Leukocyte Esterase Urine Negative (Negative); Nitrate Urine Negative (Negative); Protein Urine Neg (Negative); Sulfosalicylic Acid Urine Negative (Negative); Urine Appearance Clear (CLEAR); Urine Color Straw (Yellow); Urobilinogen Urine Norm (Negative); pH Urine 8 (5-7)
[2022-11-04 17:54] LABS: Amphetamines Screen Urine Negative (Negative); Barbiturates Screen Urine Negative (Negative); Benzodiazepines Screen Urine Negative (Negative); Cocaine Screen Urine Negative (Negative); Opiate Screen Urine Negative (Negative); PCP Screen Urine Negative (Negative); THC Screen Urine Negative (Negative)
[2022-11-04 18:17] VITALS: BP 99/57; PULSE 73; RESP 16; O2SAT 97
--- NOTE | 2022-11-04 18:49 | W.ED.NEUROSD ---
HPI - Neuro Symptoms/Deficit General: Chief Complaint: Neuro Symptoms/Deficit Stated Complaint: stroke like symptoms Time Seen by Provider: 11/04/22 16:37 History of Present Illness: 31-year-old female who is x6 months and currently breast-feeding. With history of complex migraine headaches into emergency room today via private car with vague complaint of change in mentation within the past 3 hours. She was brought to emergency room by dad. Data reviewed the patient is unable to communicate and confused. No known fall history of head injury. Fever, no nausea or vomiting according to the dad. Had a similar episode while she was 28 weeks and was seen and evaluated at this ER and sent to a different hospital for further evaluation and treatment. Associated symptoms: Deny chest pain, diaphoresis, malaise or syncope Review of Systems General: Reports: 10 or more systems reviewed and unremarkable except in HPI and below Const: Denies: fever(s), chills, body aches, change in weight, fatigue, malaise, night sweats, diaphoresis, change in sleep pattern or daytime sleepiness Card: Denies: chest pain, palpitations, irregular heart rhythm, edema, swelling of feet/ankles, lightheadedness or syncope Neuro: Reports: Slurred speech present and difficulty communicating thoughts; Denies: sensory changes, lack of coordination, frequent falls, seizure-like activity, involuntary movements or restless legs [facility] ED PFSH: Medical History Asthma Fracture of fifth metacarpal bone of left hand Headache, variant migraine Hyperemesis gravidarum Low lying placenta with hemorrhage, antepartum Surgical History No history of previous surgery Family History Father Hypertension Heart disease Grandfather Diabetes Stroke Other Thyroid disease Denies family history of Colon cancer Ovarian cancer Hypercholesteremia Breast cancer Uterine cancer Social History Smoking and tobacco status: never smoked Substance/Drug Use: never Do you think of yourself as: Straight/Heterosexual NIH stroke score NIHSS: Level Of Consciousness - 1a: 1 Level Of Consciousness Questions - 1b: Both Correct Level Of Consciousness Commands - 1c: Neither Correct Best Gaze - 2: Normal Visual Ware - 3: No Visual Loss Facial Palsy - 4: Normal Motor Arm Left - 5: No Drift Motor Leg Right - 6: No Drift Motor Leg Left - 6: No Drift Limb Ataxia - 7: Absent Sensory - 8: Normal Best Language - 9: Mild/Moderate Aphasia Dysarthia - 10: Mild/Moderate Dysarthia Physical Exam Const: GENERAL APPEARANCE: well kempt Eye: GENERAL EYE: appearance normal, both eyes and all related structures Neck/C-Spine: COMMON NORMALS: no JVD Chest: COMMONS NORMALS: normal inspection of the chest, normal palpation of entire chest wall, normal inspection of the breasts and normal palpation of the breasts Breast/axilla inspection: Yes normal inspection of the breasts BREAST/AXILLA PALPATION: Yes normal palpation of the breasts Resp: COMMON NORMALS: normal respiratory effort, No retractions, No use of accessory muscles, clear to auscultation bilaterally and percussion normal AUSCULTATION: clear to auscultation bilaterally PERCUSSION: percussion normal Cardio: COMMON NORMALS: no JVD, regular rate, regular rhythm, S1 normal heart sound present, S2 normal heart sound present, No gallops present (Cardio), No clicks present (Cardio), No murmurs present (Cardio), No rub (Cardio) and Peripheral pulses 2+ throughout RATE: regular rate RHYTHM: regular rhythm HEART SOUNDS: S1 normal heart sound present and S2 normal heart sound present PERIPHERAL PULSES: Peripheral pulses 2+ throughout Psych: APPEARANCE: Yes well kempt ACTIVITY/MOTOR BEHAVIOR: No restless SPEECH: Yes minimal Course Reevaluation(s): Reevaluation #1: At 6:30 PM patient was reassessed and reexamined. Is awake alert x3 patient was able to talk. Further reveals that she was diagnosed with complex migraine headaches patient further reveals having a lot of stress including lack of sleep. And reveals that she slept only 2 hours all day yesterday and today. She denies any head injury or loss of consciousness while at home. Patient denies any further testing or admission to the hospital at this time. Patient was told to follow-up with Dr. Davenport for further evaluation and treatment. Given referral to see Dr. Davenport. Vital Signs: Vital signs: Vital Signs Temperature 98.0 F 11/04/22 16:15 Pulse Rate 73 11/04/22 18:17 Respiratory Rate 16 11/04/22 18:17 Blood Pressure 99/57 11/04/22 18:17 Pulse Oximetry 97 11/04/22 18:17 MDM - Neuro Symptoms/Deficit Medical Decision Making She was made comfortable emergency room. Patient had extensive work-up done including CT, CBC, urine drug screen, CMP. I thoroughly reviewed past medical history and records. Discussed CT finding with patient and father. Patient with multiple neurological examination while in the emergency room. Lab Data 11/04/22 16:50 11/04/22 16:[address] 11/04/22 16:43 IMPRESSION: No CT evidence of acute intracranial pathology. Laboratory Results WBC 6.2 10^3/uL (4.0-10.0) 11/04/22 16:50 RBC 4.54 10^6/uL (4.1-5.3) 11/04/22 16:50 Hgb 13.8 g/dL (11.5-15.3) 11/04/22 16:50 Hct 40.2 % (37.0-47.0) 11/04/22 16:50 MCV 88.5 fl (81-99) 11/04/22 16:50 MCH 30.4 pg (28.0-34.0) 11/04/22 16:50 MCHC 34.3 g/dL (30.0-36.0) 11/04/22 16:50 RDW 12.2 % (12.1-15.1) 11/04/22 16:50 Plt Count 274 10^3/cmm (130-400) 11/04/22 16:50 MPV 8.9 fL (7.4-10.4) 11/04/22 16:50 Neut % (Auto) 50.4 % 11/04/22 16:50 Lymph % (Auto) 35.1 % 11/04/22 16:50 [place] % (Auto) 8.4 % 11/04/22 16:50 Eos % (Auto) 5.3 % 11/04/22 16:50 Baso % (Auto) 0.5 % 11/04/22 16:50 Neut # (Auto) 3.11 10^3/uL (1.8-7.7) 11/04/22 16:50 Lymph # (Auto) 2.2 10^3/uL (0.8-4.8) 11/04/22 16:50 [place] # (Auto) 0.5 10^3/uL (0.2-0.9) 11/04/22 16:50 Eos # (Auto) 0.3 10^3/uL (0.0-0.8) 11/04/22 16:50 Baso # (Auto) 0.0 10^3/uL (0.0-0.1) 11/04/22 16:50 Nucleated RBC % (auto) 0 % 11/04/22 16:50 Nucleated RBCs # 0.0 /100WBC 11/04/22 16:50 Sodium 140 mmol/L (136-145) 11/04/22 16:50 Potassium 3.7 mmol/L (3.5-5.1) 11/04/22 16:50 Chloride 102 mmol/L (98-107) 11/04/22 16:50 Carbon Dioxide 22 mmol/L (22-29) 11/04/22 16:50 Anion Gap 19.7 (5-19) H 11/04/22 16:50 BUN 10 mg/dL (6-20) 11/04/22 16:50 Creatinine 0.6 mg/dL (0.5-0.9) 11/04/22 16:50 GFR Calculation 118.2 mL/min (90-130) 11/04/22 16:50 Glucose 102 mg/dL (65-115) 11/04/22 16:50 Calculated Osmolality 289 mOsm/kg (285-295) 11/04/22 16:50 Calcium 9.9 mg/dL (8.5-10.5) 11/04/22 16:50 Total Bilirubin 0.4 mg/dL (0.15-1.2) 11/04/22 16:50 AST 29 U/L (0-32) 11/04/22 16:50 ALT 33 U/L (0-33) 11/04/22 16:50 Alkaline Phosphatase 56 U/L (35-105) 11/04/22 16:50 Total Protein 8.3 g/dL (6.6-8.7) 11/04/22 16:50 Albumin 5.1 g/dL (3.5-5.2) 11/04/22 16:50 Globulin 3.2 g/dL (1.3-4.6) 11/04/22 16:50 TSH 2.30 uIU/mL (0.27-4.20) 11/04/22 16:50 HCG, Qual Negative (Negative) 11/04/22 17:40 Urine Color Straw (Yellow) 11/04/22 17:40 Urine Appearance Clear (CLEAR) 11/04/22 17:40 Urine pH 8 (5-7) H 11/04/22 17:40 Ur Specific [place] 1.010 (1.005-1.030) 11/04/22 17:40 Urine Protein Neg (Negative) 11/04/22 17:40 Urine Glucose (UA) Norm (Normal) 11/04/22 17:40 Urine Ketones Negative (Negative) 11/04/22 17:40 Urine Blood Neg (Negative) 11/04/22 17:40 Urine Nitrate Negative (Negative) 11/04/22 17:40 Urine Bilirubin Neg (Negative) 11/04/22 17:40 Prot Sulfosalicylic Acd Negative (Negative) 11/04/22 17:40 Urine Urobilinogen Norm mg/dL (Negative) 11/04/22 17:40 Ur Leukocyte Esterase Negative (Negative) 11/04/22 17:40 Salicylates < 0.3 mg/dL (3-10) L 11/04/22 16:50 Urine Opiates Screen Negative ng/mL (Negative) 11/04/22 17:40 Acetaminophen < 5.0 ug/mL (10-30) L 11/04/22 16:50 Ur Barbiturates Screen Negative ng/mL (Negative) 11/04/22 17:40 Ur Phencyclidine Scrn Negative ng/mL (Negative) 11/04/22 17:40 Ur Amphetamines Screen Negative ng/mL (Negative) 11/04/22 17:40 U Benzodiazepines Scrn Negative ng/mL (Negative) 11/04/22 17:40 Urine Cocaine Screen Negative ng/mL (Negative) 11/04/22 17:40 U Marijuana (THC) Screen Negative ng/mL (Negative) 11/04/22 17:40 Ethyl Alcohol < 10 mg/dL (0-10) 11/04/22 16:50 Discharge Plan Discharge Patient Disposition: Home Clinical Impression: Neuralgic migraines Condition: Stable Prescriptions: No Action Probiotic 3 billion cell capsule 3,000 mmu cells PO DAILY Rx Instructions: administer with a meal prenat.vits,dianne,[id number]-sdta-xuouo Tablet 1 tab PO DAILY Discharge Orders: Discharge ED (Routine); Ordered 11/04/22 Ordered By: Tarah Briceño Referrals: Dia Davenport MD [Physician] - 4-7 days Corina Powell DO [Primary Care Provider] - Discharge Diet: Advance as tolerated Discharge Activity: Resume usual activity Patient Instructions: Opioid Safety, Pain Management Coding Level of Care Code ED Fitter Type Bar And Segment for Cynthia Martin
== END 2022-11-04 19:07 | disposition home or self-care (01) ==
PROVIDERS: Emergency Provider Family Medicine; PCP Family Medicine
DX: G43.809 Other migraine, not intractable, without status migrainosus (principal)
CPT/HCPCS: 70450; 80053; 80306; 80307; 81003; 81025; 84443; 85025; 99284

== ENCOUNTER 2023-03-11 06:43 | Outpatient (CLI) | payer BC, MEDICAID, SELFPAY ==
--- NOTE | 2023-03-11 | US_ITS ---
WS: [id number] US pelv w/transvag [id number] HISTORY: PELVIC PAIN COMPARISON: None available. Uterus: 7.7 cm x 5.2 cm x 3.7 cm. Normal size retroverted uterus. No fibroid or mass identified. Endometrium: 0.6 cm. In the very distal endometrium there is slight splaying of the back of the endo metrium with a hyperechoic mass measuring 1.5 x 1.4 x 0.7 cm. Highly suspicious for a polyp. This reed l need to be further evaluated. There is some central increased vascularity within this hyperechoic m ass. Right ovary: 2.8 cm x 1.4 cm x 2.4 cm. Normal size and vascularity, no cystic or solid masses. Left ovary: 3.1 cm x 1.3 cm x 2.4 cm. Normal size and vascularity, no cystic or solid masses. No free fluid in the cul-de-sac. IMPRESSION: 1. Hyperechoic mass in the mid to distal endometrial canal measures 1.5 x 1.4 x 0.7 cm. Most likely t his is a small endometrial polyp. This will need to be further evaluated to exclude neoplasm. 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 2. Otherwise negative.
--- NOTE | 2023-03-11 | US_ITS ---
WS: [id number] Complete ABDOMINAL ULTRASOUND HISTORY: LEFT SIDED PAIN COMPARISON: None available. Liver: 12.6 cm in length. Normal size liver and echogenicity. No bile duct dilatation or mass. Portal Vein: Normal hepatopetal flow with monophasic waveform. Gallbladder: Normally distended gallbladder with no stones or wall thickening. CBD: 0.2 cm Pancreas: Normal size and echogenicity. Right kidney: 10.2 cm x 4.4 x 3.9 cm. Cortex:0.7 cm. Normal size and echogenicity. No hydronephrosis or mass. Left kidney: 10.6 cm x 4.7 cm x 3.6 cm. Cortex: 1.3 cm. Normal size and echogenicity. No hydronephrosis or mass. Spleen: Normal. Aorta and IVC: Unremarkable abdominal aorta and IVC. Impression: Normal complete abdomen ultrasound.
== END 2023-03-11 06:44 | disposition home or self-care (01) ==
LOC: RAD 06:43
PROVIDERS: PCP Family Medicine; Visit Provider Nurse Practitioner Family
DX: R10.11 Right upper quadrant pain (principal); R10.2 Pelvic and perineal pain; N85.9 Noninflammatory disorder of uterus, unspecified
CPT/HCPCS: 76700; 76830; 76856

== ENCOUNTER → 2023-05-12 15:19 | Outpatient (BNVA) | payer BC, MEDICAID, SELFPAY | PROVIDERS: PCP Family Medicine; Visit Provider Obstetrics & Gynecology | DX: Z01.419 Encounter for gynecological examination (general) (routine) without abnormal findings (principal) | CPT/HCPCS: 87624 ==

== ENCOUNTER → 2023-07-16 12:21 | Outpatient (BNVA) | payer BC, SELFPAY | PROVIDERS: PCP Family Medicine; Visit Provider Obstetrics & Gynecology | DX: N94.6 Dysmenorrhea, unspecified (principal); N84.0 Polyp of corpus uteri | CPT/HCPCS: 76830 ==

== ENCOUNTER → 2023-09-17 12:25 | Outpatient (BNVA) | payer BC, MEDICAID, SELFPAY | PROVIDERS: PCP Family Medicine; Visit Provider Nurse Practitioner Women's Health | DX: Z34.90 Encounter for supervision of normal pregnancy, unspecified, unspecified trimester (principal) | CPT/HCPCS: 76801; 84315 ==

== ENCOUNTER → 2023-09-24 13:45 | Outpatient (BNVA) | payer BC, MEDICAID, SELFPAY | PROVIDERS: PCP Family Medicine; Visit Provider Obstetrics & Gynecology | DX: Z34.90 Encounter for supervision of normal pregnancy, unspecified, unspecified trimester (principal) | CPT/HCPCS: 80307; 85025; 86592; 86762; 86803; 86850; 86900; 87086; 87340; 87491; 87591; 87806 ==

== ENCOUNTER 2023-09-28 10:04 | Emergency (ER) | payer BC, MEDICAID, SELFPAY ==
[2023-09-28 10:10] VITALS: BP 116/71; PULSE 92; RESP 14; TEMP 36.7; O2SAT 99
[2023-09-28 10:29] LABS: Add Urine Microscopic? NO; Charge for UA Resulting for Rev
[2023-09-28 10:32] LABS: Bilirubin Urine Neg (Negative); Blood Urine Neg (Negative); Glucose Urine UA Norm (Normal); Ketones Urine Negative (Negative); Leukocyte Esterase Urine Negative (Negative); Nitrate Urine Negative (Negative); Protein Urine Neg (Negative); Specific Gravity, Urine 1.015 (1.005-1.030); Urine Appearance Clear (CLEAR); Urine Color Yellow (Yellow); Urobilinogen Urine Norm (Negative); pH Urine 7 (5-7)
[2023-09-28 10:34] LABS: Basophils % 0.5 %; Eosinophils # 0.1 10^3/uL (0.0-0.8); Eosinophils % 1.6 %; Hematocrit 36.6 % (36-47); Lymphocytes # 1.4 10^3/uL (0.8-4.8); Lymphocytes % 25.8 %; Mean Corpuscular HGB Conc 33.6 g/dL (30-55); Mean Corpuscular Hemoglobin 30.5 pg (27-33); Mean Corpuscular Volume 90.8 fl (85-98); Mean Platelet Volume 8.6 fL (7.4-10.4); Monocytes # 0.4 10^3/uL (0.2-0.9); Monocytes % 7.2 %; Neutrophils # 3.58 10^3/uL (1.8-7.7); Neutrophils % 64.2 %; Nucleated Red Blood Cells % 0 %; Platelet Count 256 10^3/cmm (157-399); Red Blood Count 4.03 10^6/uL (3.85-5.65); Red Cell Distribution Width 12.4 % (12.1-15.1); White Blood Count 5.58 10^3/uL (3.29-11.43)
--- NOTE | 2023-09-28 10:51 | ED_ITS ---
HPI - Abdominal Pain 2 General: Chief Complaint: Abdominal Pain Stated Complaint: abd pain, 10 weeks , lethargie Time Seen by Provider: 09/28/23 10:30 Source: patient Mode of arrival: ambulatory Limitations: no limitations History of Present Illness: 32-year-old female who states she is 10 weeks states she is having intercourse last night and had sudden onset of pelvic pain she states the pain is lessened that is currently a 2 out of 10. She denies any dysuria denies any vaginal bleeding she has had no vomiting or diarrhea. She denies any worsening improving factors. Associated Symptoms: Denies chills, diarrhea, dysuria, fever(s), nausea and vomiting Review of Systems 2 Const: Denies: fever(s), chills, body aches or change in appetite ENMT: Denies: throat pain or dental pain Card: Denies: chest pain Resp: Denies: dyspnea GI: Reports: abdominal pain; Denies: nausea, vomiting or diarrhea : Denies: dysuria Musc: Denies: neck pain or back pain Skin/Breast: Denies: rash Neuro: Denies: headache(s) PFSH ED 2 PFSH: Medical History Low lying placenta with hemorrhage, antepartum Hyperemesis gravidarum Headache, variant migraine Asthma Fracture of fifth metacarpal bone of left hand Surgical History No history of previous surgery Family History Father Hypertension Heart disease Grandfather Diabetes Stroke Other Thyroid disease Denies family history of Colon cancer Ovarian cancer Hypercholesteremia Breast cancer Uterine cancer Social History Smoking and tobacco/nicotine status: never used tobacco/nicotine Substance/Drug Use: never Do you think of yourself as: Straight/Heterosexual Physical Exam 2 Const: COMMON NORMALS: no acute distress, patient oriented x3 and healthy appearing HENMT: COMMON NORMALS: normocephalic and atraumatic HEAD & SCALP: n ormocephalic and atraumatic Neck/C-Spine: COMMON NORMALS: full ROM and supple Chest: COMMONS NORMALS: normal inspection of the chest Resp: COMMON NORMALS: normal respiratory effort Cardio: COMMON NORMALS: regular rate, regular rhythm and No murmurs present (Cardio) RATE: regular rate RHYTHM: regular rhythm GI: COMMON NORMALS: Normal to inspection, nondistended, normoactive bowel sounds present, Soft to palpation, non-tender and no masses PALPATION: Yes Soft to palpation Extremity: COMMON NORMALS: normal to inspection and full ROM Neuro: COMMON NORMALS: patient oriented x3, moves all extremities and no focal motor deficits Psych: COMMON NORMALS: mental status grossly normal, Normal thought process present and cooperative THOUGHT PROCESS: Normal thought process present Skin: COMMON NORMALS: no rashes or lesions noted and no wounds GENERAL SKIN EXAM: no rashes or lesions noted Course 2 Vital Signs: Vital signs: Vital Signs Temperature 98.1 F 09/28/23 10:10 Pulse Rate 92 09/28/23 10:10 Respiratory Rate 14 09/28/23 10:10 Blood Pressure 116/71 09/28/23 10:10 Pulse Oximetry 99 09/28/23 10:10 MDM - Abdominal Pain Medical Decision Making Patient presents here with abdominal pain in her history like had been a cyst possible round ligament pain her pain is completely resolved and she is nontender on exam here urinalysis blood work here is all normal I did a bedside ultrasound showed IUP consistent with dates with heart rate of 146 she is stable for discharge she is follow-up with her OB and return if worsening she understands agrees to plan Medical Records I reviewed the patient's medical records. Lab Data I reviewed the patient's lab results. 09/28/23 10:29 09/28/23 10:29 Labs/Radiology: Laboratory Results WBC 5.58 10^3/uL (3.29-11.43) 09/28/23 10:29 RBC 4.03 10^6/uL (3.85-5.65) 09/28/23 10:29 Hgb 12.30 g/dL (11.27-16.99) 09/28/23 10:29 Hct 36.6 % (36-47) 09/28/23 10:29 MCV 90.8 fl (85-98) 09/28/23 10:29 MCH 30.5 pg (27-33) 09/28/23 10:29 MCHC 33.6 g/dL (30-55) 09/28/23 10:29 RDW 12.4 % (12.1-15.1) 09/28/23 10:29 Plt Count 256 10^3/cmm (157-399) 09/28/23 10:29 MPV 8.6 fL (7.4-10.4) 09/28/23 10:29 Neut % (Auto) 64.2 % 09/28/23 10:29 Lymph % (Auto) 25.8 % 09/28/23 10:29 [place] % (Auto) 7.2 % 09/28/23 10:29 Eos % (Auto) 1.6 % 09/28/23 10:29 Baso % (Auto) 0.5 % 09/28/23 10: Neut # (Auto) 3.58 10^3/uL (1.8-7.7) 09/28/23 10:29 Lymph # (Auto) 1.4 10^3/uL (0.8-4.8) 09/28/23 10:29 [place] # (Auto) 0.4 10^3/uL (0.2-0.9) 09/28/23 10:29 Eos # (Auto) 0.1 10^3/uL (0.0-0.8) 09/28/23 10:29 Baso # (Auto) 0.0 10^3/uL (0.0-0.1) 09/28/23 10:29 Nucleated RBC % (auto) 0 % 09/28/23 10: Nucleated RBCs # 0.0 /100WBC 09/28/23 10:29 Sodium 134 mmol/L (136-145) L 09/28/23 10:29 Potassium 3.9 mmol/L (3.5-5.1) 09/28/23 10: Chloride 101 mmol/L (98-107) 09/28/23 10:29 Carbon Dioxide 23 mmol/L (22-29) 09/28/23 10: Anion Gap 13.9 (5-19) 09/28/23 10:29 BUN 9 mg/dL (6-20) 09/28/23 10:29 Creatinine 0.5 mg/dL (0.5-0.9) 09/28/23 10:29 GFR Calculation 144.9 mL/min (90-130) H 09/28/23 10:29 Glucose 69 mg/dL (65-115) 09/28/23 10:29 Calculated Osmolality 275 mOsm/kg (285-295) L 09/28/23 10:29 Calcium 9.0 mg/dL (8.5-10.5) 09/28/23 10:29 Total Bilirubin 0.5 mg/dL (0.15-1.2) 09/28/23 10:29 AST 16 U/L (0-32) 09/28/23 10:29 ALT 13 U/L (0-33) 09/28/23 10:29 Alkaline Phosphatase 43 U/L (35-105) 09/28/23 10:29 Total Protein 7.3 g/dL (6.6-8.7) 09/28/23 10:29 Albumin 4.3 g/dL (3.5-5.2) 09/28/23 10: Globulin 3.0 g/dL (1.3-4.6) 09/28/23 10:29 Lipase 26 U/L (13-60) 09/28/23 10:29 Ser , Semi-Qnt 27955.00 mIU/mL 09/28/23 10:29 Urine Color Yellow (Yellow) 09/28/23 10:24 Urine Appearance Clear (CLEAR) 09/28/23 10:24 Urine pH 7 (5-7) 09/28/23 10:24 Ur Specific [place] 1.015 (1.005-1.030) 09/28/23 10:24 Urine Protein Neg (Negative) 09/28/23 10:24 Urine Glucose (UA) Norm (Normal) 09/28/23 10:24 Urine Ketones Negative (Negative) 09/28/23 10:24 Urine Blood Neg (Negative) 09/28/23 10:24 Urine Nitrate Negative (Negative) 09/28/23 10:24 Urine Bilirubin Neg (Negative) 09/28/23 10:24 Urine Urobilinogen Norm mg/dL (Negative) 09/28/23 10:24 Ur Leukocyte Esterase Negative (Negative) 09/28/23 10:24 No radiology studies performed this visit Discharge Plan Discharge Patient Disposition: Home Clinical Impression: Abdominal pain in Condition: Stable Prescriptions: No Action Classic 28 mg iron- 800 mcg tablet PO Classic 28 mg iron- 800 mcg tablet 1 tab PO DAILY Qty: 60 3RF Probiotic 3 billion cell capsule 3,000 mmu cells PO DAILY Qty: 90 3RF Rx Instructions: administer with a meal Discharge Orders: Discharge ED (Routine); Ordered 09/28/23 Ordered By: Ag Delgado Referrals: Corina Powell DO [Primary Care Provider] - 4-7 days Discharge Diet: Advance as tolerated Discharge Activity: Resume usual activity Patient Instructions: Abdominal Pain (ED) Coding Level of Care Code ED Water Tanker Driver for Cynthia Martin
[2023-09-28 11:04] LABS: Alanine Aminotransferase 13 U/L (0-33); Albumin Level 4.3 g/dL (3.5-5.2); Alkaline Phosphatase 43 U/L (35-105); Anion Gap 13.9 (5-19); Aspartate Amino Transferase 16 U/L (0-32); Blood Urea Nitrogen 9 mg/dL (6-20); Carbon Dioxide 23 mmol/L (22-29); Chloride 101 mmol/L (98-107); Glomerular Filtration Rate 144.9 mL/min (90-130); Glucose 69 mg/dL (65-115); Lipase 26 U/L (13-60); Osmolality Calculated 275 mOsm/kg (285-295); Potassium 3.9 mmol/L (3.5-5.1); Sodium 134 mmol/L (136-145); Total Bilirubin 0.5 mg/dL (0.15-1.2); Total Protein 7.3 g/dL (6.6-8.7)
[2023-09-28 11:30] VITALS: BP 91/51; PULSE 79; O2SAT 98
[2023-09-28 11:58] VITALS: BP 103/63; PULSE 73; O2SAT 100
== END 2023-09-28 11:58 | disposition home or self-care (01) ==
PROVIDERS: Emergency Provider Emergency Medicine; PCP Family Medicine
DX: O26.891 Other specified pregnancy related conditions, first trimester (principal); R10.9 Unspecified abdominal pain; O99.511 Diseases of the respiratory system complicating pregnancy, first trimester; J45.909 Unspecified asthma, uncomplicated; Z3A.10 10 weeks gestation of pregnancy
CPT/HCPCS: 36415; 80053; 81003; 83690; 84702; 85025; 99283

== ENCOUNTER → 2023-12-03 14:26 | Outpatient (BNVA) | payer BC, MEDICAID, SELFPAY | PROVIDERS: PCP Family Medicine; Visit Provider Obstetrics & Gynecology | DX: Z36.2 Encounter for other antenatal screening follow-up (principal); Z3A.20 20 weeks gestation of pregnancy | CPT/HCPCS: 76805 ==

== ENCOUNTER → 2024-01-07 08:52 | Outpatient (BNVA) | payer BC, MEDICAID, SELFPAY | PROVIDERS: PCP Family Medicine; Visit Provider Nurse Practitioner Women's Health | DX: Z34.90 Encounter for supervision of normal pregnancy, unspecified, unspecified trimester (principal); R53.83 Other fatigue | CPT/HCPCS: 82306; 84315 ==

== ENCOUNTER → 2024-01-28 13:27 | Outpatient (BNVA) | payer BC, MEDICAID, SELFPAY | PROVIDERS: PCP Family Medicine; Visit Provider Obstetrics & Gynecology | DX: Z34.90 Encounter for supervision of normal pregnancy, unspecified, unspecified trimester (principal) | CPT/HCPCS: 82950; 84315 ==

== ENCOUNTER 2024-04-05 10:26 | Outpatient (CLI) | payer BC, MEDICAID, SELFPAY ==
[2024-04-05 10:40] VITALS: BP 118/73; PULSE 96; BMI 30.1
[2024-04-05 10:51] VITALS: BP 115/70; PULSE 90
[2024-04-05 11:06] VITALS: BP 111/72; PULSE 82
[2024-04-05 11:22] VITALS: BP 102/55; PULSE 76
== END 2024-04-05 11:30 | disposition home or self-care (01) ==
LOC: OPOB 10:26 → OBGYN 10:38
PROVIDERS: PCP Family Medicine; Visit Provider Obstetrics & Gynecology
DX: O16.9 Unspecified maternal hypertension, unspecified trimester (principal); Z3A.00 Weeks of gestation of pregnancy not specified
CPT/HCPCS: 84315

== ENCOUNTER → 2024-04-12 13:59 | Outpatient (BNVA) | payer BC, MEDICAID, SELFPAY | PROVIDERS: PCP Family Medicine; Visit Provider Obstetrics & Gynecology | DX: Z34.90 Encounter for supervision of normal pregnancy, unspecified, unspecified trimester (principal) | CPT/HCPCS: 84315 ==

== ENCOUNTER 2024-04-16 17:15 | Inpatient (IN) | payer BC, MEDICAID, SELFPAY ==
[2024-04-16] VITALS (12 sets, daily range): BP systolic 91–112; BP diastolic 55–68; PULSE 73–90; RESP 16; TEMP 35.7; BMI 29.9
[2024-04-16] MEDS: miSOPROStol 100 mcg tablet 25 MCG VAGINAL (19:14)
[2024-04-16 19:25] LABS: Basophils % 0.3 %; Eosinophils # 0.1 10^3/uL (0.0-0.8); Eosinophils % 1.7 %; Hematocrit 31.8 % (36-47); Lymphocytes # 1.9 10^3/uL (0.8-4.8); Lymphocytes % 25.8 %; Mean Corpuscular HGB Conc 33.3 g/dL (30-55); Mean Corpuscular Hemoglobin 30.7 pg (27-33); Mean Corpuscular Volume 92.2 fl (85-98); Mean Platelet Volume 10.3 fL (7.4-10.4); Monocytes # 0.8 10^3/uL (0.2-0.9); Monocytes % 10.9 %; Neutrophils # 4.39 10^3/uL (1.8-7.7); Neutrophils % 60.6 %; Nucleated Red Blood Cells % 0 %; Platelet Count 212 10^3/cmm (157-399); Red Blood Count 3.45 10^6/uL (3.85-5.65); Red Cell Distribution Width 12.5 % (12.1-15.1); White Blood Count 7.24 10^3/uL (3.29-11.43)
[2024-04-17] VITALS (22 sets, daily range): BP systolic 91–114; BP diastolic 51–69; PULSE 68–105; RESP 16–17; TEMP 35.8–37.1; O2SAT 98–100
[2024-04-17] MEDS: miSOPROStol 100 mcg tablet 25 MCG VAGINAL (00:08)
[2024-04-17] MEDS: dextrose 5%-lactated ringers 1,000 ML 125 ML IV (07:52)
[2024-04-17] MEDS: oxytocin 30 UNIT/500 ML BAG IV (07:53)
--- NOTE | 2024-04-17 11:36 | P.HPUD_ITS ---
Labor & Delivery H&P Update Date of Procedure: April 17, 2024 Date H&P Performed: 06/28/22 H&P update information: I have reviewed H&P completed within last 30 days Changes to previous documentation: 33-year-old female G7, P4 at 39.5 weeks gestation with AVERY 04/18/2024 admitted for elective induction of labor on 04/16/2024. Patient gives history of past with placenta previa with hemorrhage required medication but no harman sfusion. Her last pregnancies ultrasound report was reviewed with no mention of placenta previa or low-lying placenta. Pregnancies otherwise have been uneventful. Patient initial evaluation on labor and delivery, NST category 1. Cervix 1 cm /thick/-3 vertex presentation confirmed with ultrasound. Patient was counseled on Cytotec for cervical ripening and after results of effacement in the cervix we would start Pitocin for induction of labor. Patient verbalized understanding and consent was signed. Patient had 2 doses of Cytotec 4 hours apart, repeat cervix exam this morning revealed the cervix to be 2 cm / 80%/-2 vertex presentation. AROM was performed with clear fluid noted. Admission Diagnosis: 1. 33-year-old female G7, P4 at 39.5-week gestation 2. GBS negative 3. Multigravida 4. Patient desires elective sterilization 5. History of anxiety (patient desired no medication) 6. Endometrial polyp by ultrasound for 2023 7. History of subchorionic hematoma in the first trimester?resolved 8. History of pups rash at 23 weeks gestation (treated with hydroxyzine 50 mg twice daily and topical hydrocortisone) 9. History of elevated 1 hour glucose on 01/28/2024 (patient repeatedly did not show for 3-hour glucose test) 10. History of hemorrhage 11. History of migraine headaches with aura 12. History of seizure activity possibly related to PIH symptoms although blood pressure remained normal. 13. History of positive LARISSA Primary indication for procedure: Elective induction at 39.5 weeks gestation Planned procedure: Cervical ripening with Cytotec followed by Pitocin induction Anticipate Requested sterilization
[2024-04-17] MEDS: fentaNYL 50 mcg/mL INJ 2mL IVP (16:39)
--- NOTE | 2024-04-17 17:09 | PM.OBGYPN ---
HIGHWAY SAFETY ENGINEER Subjective Subjective: Interval history: in to see pt. nursing staff report received. Pt 7cm/80%/-1. Gurwinder q 2-4 with Variables noted. Just received IV pain med. Does not desire Epidural. Labor: Station: -1 Amniotic Membrane Status: Ruptured Monitor Mode: External Contraction Pattern: Regular Vitals/I&O/Wt Last Vital Signs Temp 96.4 F L 04/17/24 16:54 Pulse 90 04/17/24 16:54 Resp 17 04/17/24 16:39 BP 106/65 04/17/24 16:54 O2 Del Method Room Air 04/17/24 06:12 04/17/24 04/17/24 04/17/24 06:59 14:59 22:59 Intake Total 25.617 / 25.617 891.667 / 917.284 Balance 25.617 / 25.617 891.667 / 917.284 Weight last 48 hrs Weight 76.657 kg Data 04/16/24 19:10 A&P Assessment and plan (1) 39 weeks gestation of : IOL (2) Multiparity: Attestations Medical Necessity Statement*: IOL Coding Level of Care Code Acute Code for Chg Fwd Diagnoses 39 weeks gestation of Z3A.39 Multiparity Z64.1
[2024-04-17] MEDS: miSOPROStol 200 mcg Tablet 800 MCG PR (17:55)
[2024-04-17] MEDS: methylergonovine 0.2 mg/mL INJ 1 mL IM (18:00)
--- NOTE | 2024-04-17 18:02 | P.PCNOB_ITS ---
Delivery Note: Date of delivery: April 17, 2024 Pre-delivery diagnoses: 33-year-old G7, P4 at 39.5-week gestatio n History of hemorrhage History of PUPP History of endometrial polyp History of seizure activity possibly related to atypical PIH History of migraine headaches with aura History of positive LARISSA Desires sterilization Post-delivery diagnoses: Same S/p viable female 7 pounds 5 ounces Uterine atony Procedure: 33-year-old female G7 now P5 delivery at 39.5 weeks gestation of viable female 7 pounds 5 ounces via . The vertex presented in OA presentation and with several pushes the head delivered over intact perineum followed by the anterior, posterior shoulders with the remainder the baby's body to follow. Spontaneous robust cry was noted. After delayed cord clamping, the cord was clamped x 2 and transected. The baby was placed on the maternal abdomen for bonding. Arterial cord pH and cord blood was drawn and handed off. Nursing staff was present for assessment and care. Pitocin solution was started in a IV bolus, and Cytotec 400 mg was placed rectally. Three-vessel cord was noted the uterus was massaged and the placenta presented in a Carney presentation with trailing membranes. The uterus was massaged and a large clot presented. Moderate trickle of blood presented from the vagina and Methergine 0.2 mg given IM. Uterus was massaged and was firm. Minimal bleeding now noted. Mother and infant are both in stable and satisfactory condition. 9/10 Op report anesthesia: None Delivering Physician: Flor Roland DO Estimated blood loss (mL): 500 Findings: Viable female infant Post Delivery Diagnoses: Uterine atony, , without hemorrhage: Treated with IV solution of Pitocin postdelivery and before delivery of placenta. Cytotec 400 mg rectally Methergine 0.2 mg IM Subchorionic hematoma in first trimester: Qualifiers: Fetus number: single or unspecified fetus Qualified Code(s): O41.8X10 - Other specified disorders of amniotic fluid and membranes, first trimester, not applicable or unspecified; O46.8X1 - Other antepartum hemorrhage, first trimester Delivery: viable female Post-Delivery Status: Stable History History History 7 Term 5 0 Miscarriages/Ectopic 2 Living Children 5 A&P Assessment and plan (1) 39 weeks gestation of : IOL (2) Multiparity: (3) Uterine atony, , without hemorrhage: (4) Request for sterilization: (5) PUPP (pruritic urticarial papules and plaques of ): (6) Subchorionic hematoma in first trimester: Qualifiers: Fetus number: single or unspecified fetus Qualified Code(s): O41.8X10 - Other specified disorders of amniotic fluid and membranes, first trimester, not applicable or unspecified; O46.8X1 - Other antepartum hemorrhage, first trimester (7) Endometrial polyp: (8) Anxiety: (9) Migraine headache with aura: (10) Seizures: (11) LARISSA positive: Plan Began care Close observation for hemorrhage Coding Level of Care Code Acute Code for Chg Fwd Diagnoses 39 weeks gestation of Z3A.39 Multiparity Z64.1 Uterine atony, , without hemorrhage O75.89 Request for sterilization Z30.2 PUPP (pruritic urticarial papules and plaques of ) O26.86 Subchorionic hematoma in first trimester, single or unspecified fetus O41.8X10; O46.8X1 Fetus number: single or unspecified fetus Endometrial polyp N84.0 Anxiety F41.9 Migraine headache with aura G43.109 Seizures R56.9 LARISSA positive R76.8
[2024-04-17] MEDS: oxytocin 30 UNIT/500 ML BAG 600 UNIT IV (18:28)
[2024-04-18] VITALS: BP 116/72; PULSE 71; RESP 16; O2SAT 100
[2024-04-18] MEDS: calcium carbonate 500 mg Chew Tablet 1000 MG PO (01:00)
[2024-04-18 02:00] VITALS: BP 104/56; PULSE 83; RESP 16; TEMP 36.6; O2SAT 100
[2024-04-18] MEDS: acetaminophen 325 mg Tablet 650 MG PO (03:16)
[2024-04-18 06:35] LABS: Hematocrit 29.7 % (36-47); Mean Corpuscular HGB Conc 33.3 g/dL (30-55); Mean Corpuscular Hemoglobin 30.6 pg (27-33); Mean Corpuscular Volume 91.7 fl (85-98); Mean Platelet Volume 10.3 fL (7.4-10.4); Platelet Count 185 10^3/cmm (157-399); Red Blood Count 3.24 10^6/uL (3.85-5.65); Red Cell Distribution Width 12.5 % (12.1-15.1); White Blood Count 13.05 10^3/uL (3.29-11.43)
[2024-04-18] MEDS: PRENATAL VIT NO.130/IRON/FOLIC 1 EACH TABLET PO (08:04)
[2024-04-18] MEDS: docusate sodium 100 mg Capsule PO ×2 (08:04→17:28)
[2024-04-18] MEDS: ibuprofen 800 mg tablet PO ×3 (08:04→20:10)
[2024-04-18 08:08] VITALS: BP 99/63; PULSE 69; RESP 16; TEMP 36.6; O2SAT 97
[2024-04-18 17:30] VITALS: BP 119/78; PULSE 78; RESP 16; TEMP 37; O2SAT 98
[2024-04-18 20:11] VITALS: BP 128/56; PULSE 69; RESP 16; TEMP 36.4; O2SAT 98
[2024-04-19 05:24] VITALS: BP 100/63; PULSE 57; RESP 15; TEMP 36.6; TEMP 36.7; O2SAT 97
[2024-04-19] MEDS: PRENATAL VIT NO.130/IRON/FOLIC 1 EACH TABLET PO (08:47)
[2024-04-19] MEDS: docusate sodium 100 mg Capsule PO (08:47)
[2024-04-19] MEDS: ibuprofen 800 mg tablet PO (08:47)
--- NOTE | 2024-04-19 08:55 | PM.OBGYDC ---
Discharge Providers JOURNEYMAN OPERATOR ASSISTANT Date of Admission: 04/16/24 17:15 Date of Discharge: 04/19/24 Attending Provider at Admission: Flor Roland DO Attending Provider at Discharge: Flor Roland DO Primary Care Provider: Corina Powell DO Diagnoses at Discharge Discharge Diagnosis (1) 39 weeks gestation of : Status: Acute (2) Multiparity: Status: Acute (3) Uterine atony, , without hemorrhage: Status: Acute (4) Request for sterilization: Status: Acute (5) PUPP (pruritic urticarial papules and plaques of ): Status: Acute (6) Subchorionic hematoma in first trimester: Status: Acute Qualifiers: Fetus number: single or unspecified fetus Qualified Code(s): O41.8X10 - Other specified disorders of amniotic fluid and membranes, first trimester, not applicable or unspecified; O46.8X1 - Other antepartum hemorrhage, first trimester (7) Endometrial polyp: Status: Acute (8) Anxiety: Status: Acute (9) Migraine headache with aura: Status: Acute (10) Seizures: Status: Acute (11) LARISSA positive: Status: Acute Reason for Visit Reason for Visit: IOL Hospital Course Hospital Course 33-year-old female G7, P5 admitted to labor and delivery for elective induction of labor at 39.1 weeks gestation. After cervical ripening patient progressed in an uneventful manner and delivered via . Patient's course has been uneventful. She is ambulating, tolerating a regular diet, voiding with no complaints. She is breast-feeding well. and discharge expectations have been reviewed with patient to include no heavy lifting pushing or pulling no sexual intercourse x 6 weeks. Patient has desire for sterilization, she will discuss that with Dr. Christianson for scheduling. Patient is encouraged to continue her vitamins with iron and her home meds may be resumed. Information Peripartum Data: Delivery Method: Vaginal Laceration description: None Episiotomy description: None complications: none Physical Exam Cardio: OTHER: Abdomen?soft, fundus firm Lochia light. Extremity: COMMON NORMALS: normal to inspection, no clubbing, cyanosis or edema and no calf tenderness History History History 7 Term 5 0 Miscarriages/Ectopic 2 Living Children 5 Discharge Data Studies Completed and Pending Laboratory Results WBC 13.05 10^3/uL (3.29-11.43) H 04/18/24 06:30 RBC 3.24 10^6/uL (3.85-5.65) L 04/18/24 06:30 Hgb 9.90 g/dL (11.27-16.99) L 04/18/24 06:30 Hct 29.7 % (36-47) L 04/18/24 06:30 MCV 91.7 fl (85-98) 04/18/24 06:30 MCH 30.6 pg (27-33) 04/18/24 06:30 MCHC 33.3 g/dL (30-55) 04/18/24 06:30 RDW 12.5 % (12.1-15.1) 04/18/24 06:30 Plt Count 185 10^3/cmm (157-399) 04/18/24 06:30 MPV 10.3 fL (7.4-10.4) 04/18/24 06:30 Neut % (Auto) 60.6 % 04/16/24 19:10 Lymph % (Auto) 25.8 % 04/16/24 19:10 [place] % (Auto) 10.9 % 04/16/24 19:10 Eos % (Auto) 1.7 % 04/16/24 19:10 Baso % (Auto) 0.3 % 04/16/24 19:10 Neut # (Auto) 4.39 10^3/uL (1.8-7.7) 04/16/24 19:10 Lymph # (Auto) 1.9 10^3/uL (0.8-4.8) 04/16/24 19:10 [place] # (Auto) 0.8 10^3/uL (0.2-0.9) 04/16/24 19:10 Eos # (Auto) 0.1 10^3/uL (0.0-0.8) 04/16/24 19:10 Baso # (Auto) 0.0 10^3/uL (0.0-0.1) 04/16/24 19:10 Nucleated RBC % (auto) 0 % 04/16/24 19:10 Nucleated RBCs # 0.0 /100WBC 04/16/24 19:10 Blood Type A Positive 04/16/24 19:10 Rho(D) Type Rh positive 04/16/24 19:10 Antibody Screen Negative 04/16/24 19:10 Vitals Last Vital Signs Temp 98.0 F 04/19/24 05:24 Pulse 57 L 04/19/24 05:24 Resp 15 04/19/24 05:24 BP 100/63 04/19/24 05:24 Pulse Ox 97 04/19/24 05:24 O2 Del Method Room Air 04/19/24 05:24 Results Labs OB ([facility]): Obstetrics US 03/16/24 Blood Type A Positive 04/16/24 Antibody Screen Negative 04/16/24 Hct 29.7 % (36-47) L 04/18/24 Hgb 9.90 g/dL (11.27-16.99) L 04/18/24 Rho(D) Type Rh positive 04/16/24 Plt Count 185 10^3/cmm (157-399) 04/18/24 Hep Bs Antigen Non-reactive (Nonreactive) 09/24/23 Hepatitis C Antibody Non-reactive (Nonreactive) 09/24/23 Rubella IgG Antibody 58.7 IU/mL (0.0-10.0) H 09/24/23 RPR Nonreactive (Nonreactive) 09/24/23 HIV 1&2 Ab & HIV 1 Ag Non-reactive (Non-Reactiv) 09/24/23 TSH 2.30 uIU/mL (0.27-4.20) 11/04/22 C.trachomatis RNA (TMA) Not detected (NOT DETECTED) 09/24/23 N.gonorrhoeae RNA (TMA) Not detected (NOT DETECTED) 09/24/23 T. vaginalis Amp RNA Not detected (NOT DETECTED) 09/24/23 Chlamydia/GC Comment See note 09/24/23 Cystic Fibrosis Screen Negative 09/24/23 Glucose 1 Hr 50 gm 152 mg/dL (85-140) H 01/28/24 Gest Glucose Tolerance mg/dL 03/16/24 Ser , Semi-Qnt 13380.00 mIU/mL 09/28/23 HCG, Qual Negative (Negative) 11/04/22 Urine Opiates Screen Negative ng/mL (Negative) 09/24/23 Ur Barbiturates Screen Negative ng/mL (Negative) 09/24/23 Ur Phencyclidine Scrn Negative ng/mL (Negative) 09/24/23 Ur Amphetamines Screen Negative ng/mL (Negative) 09/24/23 U Benzodiazepines Scrn Negative ng/mL (Negative) 09/24/23 Urine Cocaine Screen Negative ng/mL (Negative) 09/24/23 U Marijuana (THC) Screen Negative ng/mL (Negative) 09/24/23 Micro Urine Specimen 09/24/23 Pap Smear Interpret See note 05/12/23 Discharge Plan Discharge Patient Disposition: Home Condition: Stable Prescriptions: Continued Classic 28 mg iron- 800 mcg tablet PO Probiotic 3 billion cell capsule 3,000 mmu cells PO DAILY Qty: 90 3RF Rx Instructions: administer with a meal hydrocortisone 1 % cream 1 applic topical TID PRN (Reason: skin irritation) Qty: 28.35 0RF Rx Instructions: use as directed Cortisporin-TC 3.3-3-10-0.5 mg/mL drops,suspension 1 applic otic (ear) Q4H PRN (Reason: pain) Qty: 10 2RF Rx Instructions: apply to (cotton) wick; replace wick every 24 hours Discharge Orders: Discharge Order (Routine); Ordered 04/19/24 Ordered By: Flor Roland Discharge Diet: Regular Discharge Activity: Increase activity as tolerated Patient Instructions: Depression (DC), Opioid Safety (DC), Preeclampsia and Eclampsia After Delivery (GEN), Hemorrhage (DC), OB Discharge Report, OB Food/Drug Interaction Guide, Opioid Safety, OB Home Care, OB Vaginal Deliveries - [facility], Abnormal Bleeding Activity Restrictions/Additional Instructions: No strenuous activity No sexual intercourse x 6 weeks Assessment: S/p Plan of Treatment: Discharge patient to home Follow-up with Dr. Christianson in 2 weeks for scheduling of tubal sterilization Discharge Attestations JOURNEYMAN OPERATOR ASSISTANT Time Spent in Discharge Care*: less than 30 min Coding Level of Care Code Acute Code for Chg Fwd Diagnoses 39 weeks gestation of Z3A.39 Multiparity Z64.1 Uterine atony, , without hemorrhage O75.89 Request for sterilization Z30.2 PUPP (pruritic urticarial papules and plaques of ) O26.86 Subchorionic hematoma in first trimester, single or unspecified fetus O41.8X10; O46.8X1 Fetus number: single or unspecified fetus Endometrial polyp N84.0 Anxiety F41.9 Migraine headache with aura G43.109 Seizures R56.9 LARISSA positive R76.8
[2024-04-19 10:28] VITALS: BP 108/63; PULSE 81; RESP 16; TEMP 36.6; O2SAT 98
== END 2024-04-19 10:40 | disposition home or self-care (01) | DRG 807 ==
LOC: OPOB 17:15 → OBGYN 17:15
PROVIDERS: Admitting Provider Obstetrics & Gynecology; PCP Family Medicine; Visit Provider Obstetrics & Gynecology
DX: O75.89 Other specified complications of labor and delivery (principal); Z37.0 Single live birth; Z64.1 Problems related to multiparity; G43.109 Migraine with aura, not intractable, without status migrainosus; R56.9 Unspecified convulsions; R76.8 Other specified abnormal immunological findings in serum; Z3A.39 39 weeks gestation of pregnancy
CPT/HCPCS: 36415; 59025; 59409; 85025; 85027; 86850; 86900; 96372; 99211; J2210; J2590; J3010; J7121

== ENCOUNTER 2024-08-26 13:37 | Outpatient (CLI) | payer BC, MEDICAID, SELFPAY ==
--- NOTE | 2024-08-26 13:48 | US_ITS ---
WS: [id number] ULTRASOUND BREAST LEFT TECHNIQUE: Ultrasound left breast focused area of concern. CLINICAL INFORMATION: DISORDER OF BREAST/BREAST LUMP COMPARISON: None. FINDINGS: Ultrasound LEFT breast 2 o'clock position patient directed 3 cm from the nipple. Dense underlying parenchymal tissue. Dense fibrous ridging deep to the area of palpable abnormality corresponds to the area of palpable concern. This has a benign appearance. No other suspicious findings. US/US breast LT limited* 75024 IMPRESSION: BI-RADS 2 benign Recommend annual screening mammography age 40
== END 2024-08-26 13:38 | disposition home or self-care (01) ==
PROVIDERS: PCP Family Medicine; Visit Provider Nurse Practitioner Women's Health
DX: N64.89 Other specified disorders of breast (principal)
CPT/HCPCS: 76642

== ENCOUNTER 2025-01-04 05:48 | Day surgery (SDC) | payer BC, MEDICAID, SELFPAY ==
--- NOTE | 2025-01-03 22:52 | W.PM.OPSFHP ---
Same Day Surgery H&P Indication for Procedure/HPI DATE OF PROCEDURE: January 03, 2025 CHIEF COMPLAINT/INDICATIONFOR SURGICAL PROCEDURE: desires sterilization; abnormal uterine bleeding PREOP DIAGNOSIS: desires sterilization; abnormal uterine bleeding PLANNED PROCEDURE: Operation Date: 01/04/25 07:00 Proposed Procedures p Laparoscopic Salpingectomy 83325, 73923, 49372, Z30.2, N93.9(Bilateral) - Carlos Christianson MD s Hysteroscopy Hysteroscopy w/ Endometrial Sampling(Not Applicable) - Carlos Christianson MD s POSSIBLE Endometrial Poylpectomy(Not Applicable) - Carlos Christianson MD Medications/Allergies* Home Medications ?Medication ?Instructions ?Recorded ?Confirmed ?Type vitamins with calcium 1 tab PO DAILY 01/03/25 01/03/25 History no.72-iron 27 mg-folic acid 1 mg tablet (WesTab Plus) Allergies/Adverse Reactions Allergy/AdvReac Type Severity Reaction Status Date / Time Pork/Porcine Containing Allergy Unknown Verified 01/03/25 11:41 Products Sulfa (Sulfonamide Allergy Unknown Verified 01/03/25 11:41 Antibiotics) metronidazole AdvReac Mild ADR-Dizzine Verified 01/03/25 11:41 ss Pertinent History/Comorbid Conditions* Medical History (Updated 07/08/24 @ 14:56 by Flor Roland DO) Dyspareunia Migraine headache with aura Seizures LARISSA positive Low lying placenta with hemorrhage, antepartum Hyperemesis gravidarum Headache, variant migraine Asthma Fracture of fifth metacarpal bone of left hand Surgical History (Updated 06/20/22 @ 11:53 by Fabi Chaidez MD) No history of previous surgery Family History (Updated 12/21/21 @ 13:34 by Anne Marie Munguia LPN) Diabetes Grandfather Heart disease Father Hypertension Father Thyroid disease Stroke Grandfather Denies family history of Colon cancer Ovarian cancer Hypercholesteremia Breast cancer Uterine cancer Social History Smoking and tobacco/nicotine status: never used tobacco/nicotine Pertinent Exam Findings alert, oriented x 3, clear to auscultation bilaterally and regular rate & rhythm Recommendations Surgery/Procedure today Coding Level of Care Code Acute Code for Chg Fwd
[2025-01-04] VITALS (12 sets, daily range): BP systolic 98–115; BP diastolic 60–88; PULSE 73–94; RESP 15–18; TEMP 36.1–36.9; O2SAT 97–100; BMI 24.3
[2025-01-04 06:35] LABS: OR HCG Qualitative Urine Negative (Negative)
--- NOTE | 2025-01-04 06:37 | W.PM.OPSUD ---
Surgery/Procedure H&P Update DATE OF PROCEDURE: January 04, 2025 DATE H&P PERFORMED: 01/03/25 H&P UPDATE INFORMATION: I have reviewed H&P completed within last 30 days, I have examined patient prior to procedure and No changes to prior documentation PREOP DIAGNOSIS: desires sterilization; abnormal uterine bleeding PLANNED PROCEDURE: Operation Date: 01/04/25 07:00 Proposed Procedures p Laparoscopic Salpingectomy 81840, 85393, 02553, Z30.2, N93.9(Bilateral) - Carlos Christianson MD s Hysteroscopy Hysteroscopy w/ Endometrial Sampling(Not Applicable) - Carlos Christianson MD s POSSIBLE Endometrial Poylpectomy(Not Applicable) - Calros Christianson MD
--- NOTE | 2025-01-04 06:53 | P.ANESASSM_ITS ---
Pre-Anesthetic Assessment Height/Weight: Height 1.6 m Weight 62.142 kg Temp Pulse Resp BP Pulse Ox O2 Del Method 98.4 F 78 18 115/70 97 Room Air 01/04/25 06:17 01/04/25 06:17 01/04/25 06:17 01/04/25 06:17 01/04/25 06:17 01/04/25 06:18 Preop Diagnosis: desires sterilization; abnormal uterine bleeding Operation Date: 01/04/25 07:00 Proposed Procedures p Laparoscopic Salpingectomy 45865, 98384, 35327, Z30.2, N93.9(Bilateral) - Carlos Christianson MD s Hysteroscopy Hysteroscopy w/ Endometrial Sampling(Not Applicable) - Carlos Christianson MD s POSSIBLE Endometrial Poylpectomy(Not Applicable) - Carlos Christianson MD Familial anesthetic complications: None Was Beta Linda taken within 24 hours: N/A Was Clonidine taken within 24 hours: N/A Last intake: Intake Last Liquid Date 01/03/25 Last Liquid Time 23:59 Last Solid Date 01/03/25 Last Solid Time 20:40 Social No alcohol and No tobacco Exam alert, oriented x 3, clear to auscultation bilaterally and regular rate & rhythm Airway Mallampati: Class I Dentition: full Anesthetic Plan ASA status: 1 Anesthesia: General Risk of > 500 ml blood loss (7ml/kg in children): No Medications/Allergies Home Medications ?Medication ?Instructions ?Recorded ?Confirmed ?Last Taken ?Type lactobacillus combination no.4 3 3,000 mmu cells PO DA ADRIENNE #90 caps 09/17/23 01/03/25 01/03/25 Rx billion cell capsule (Probiotic) vitamins with calcium 1 tab PO DAILY 01/03/25 01/03/25 01/03/25 History no.72-iron 27 mg-folic acid 1 mg tablet (WesTab Plus) Allergies Allergy/AdvReac Type Severity Reaction Status Date / Time Pork/Porcine Containing Allergy Unknown Verified 01/03/25 11:41 Products Sulfa (Sulfonamide Allergy Unknown Verified 01/03/25 11:41 Antibiotics) metronidazole AdvReac Mild ADR-Dizzine Verified 01/03/25 11:41 ss Current Medications Generic Name Dose Route Start Last Admin Trade Name Freq PRN Reason Stop Dose Admin Sodium Chloride 1,000 mls @ 30 mls/hr 01/04/25 06:15 01/04/25 06:28 Sodium Chloride 0.9% IV 01/05/25 06:14 30 mls/hr .Q24H RADHA Administration PFSH Anesthesia Medical History (Updated 07/08/24 @ 14:56 by Flor Roland DO) Dyspareunia Migraine headache with aura Seizures LARISSA positive Low lying placenta with hemorrhage, antepartum Hyperemesis gravidarum Headache, variant migraine Asthma Fracture of fifth metacarpal bone of left hand Surgical History No history of previous surgery Family History Father Hypertension Heart disease Grandfather Diabetes Stroke Other Thyroid disease Denies family history of Colon cancer Ovarian cancer Hypercholesteremia Breast cancer Uterine cancer Social History Smoking and tobacco/nicotine status: never used tobacco/nicotine Female Reproductive History Date of last menstrual period: 01/03/25
[2025-01-04] MEDS: fentaNYL 50 mcg/mL INJ 2mL IVP (08:38)
--- NOTE | 2025-01-04 09:25 | P.OP_ITS ---
Operative Report Date of procedure: January 04, 2025 Pre-op diagnosis: desires permanent sterilization Abnormal uterine bleeding Post-op diagnosis: same Post-op findings: normal uterus, tubes, and ovaries Uterus sounded to 8 cm Normal cervix Normal endometrial cavity No endometrial polyp Procedure done: laparoscopic bilateral salpingectomy Hysteroscopy Curettage of uterus Implants: none Specimens removed/disposition: bilateral fallopian tubes endometrial tissue Surgeon: Carlos Christianson MD Anesthesia: General Estimated blood loss (mL): 5 Complications: none Findings: see above Condition: stable Disposition: PACU Brief History: 34 y.o. desires permanent sterilization and with history of abnormal uterine bleeding. Procedure: The patient was taken to the OR and placed on the table. General endotracheal anesthesia was induced. The patient was then placed in dorsolithotomy position. The abdomen and perineum were then prepped and draped in the usual fashion. The bladder was drained with a red rubber catheter. A 5 mm subumbilical skin incision was made. A Veress needle was inserted. Pneumoperitoneum was achieved. The Veress needle was removed. A 5 mm trocar with sheath was then inserted into the peritoneal cavity under direct visualization with the laparoscope via the subumbilical incision. After confirming intraperitoneal position, two separate 5 mm incisions were made in the right and left mid- quadrants. 5 mm trocars with sheaths were then inserted into the peritoneal cavity under direct visualization with the laparoscope. The uterus, tubes and ovaries were seen to be normal, as was the remainder of the pelvic cavity and the liver edge. The right fallopian tube was then identified to its fimbrial end. Starting at the fimbrial end, the mesosalpinx was then coagulated and cut using the Ligasure device. The right fallopian tube was excised and removed via one of the ports. This was sent to pathology. There was no bleeding seen. Similarly, the left fallopian tube was identified to its fimbrial end. The left fallopian tube was excised and removed, sent to pathology. There was no bleeding. All instruments were then removed from the peritoneal cavity after the pneumoperitoneum was allowed to escape. The skin incisions were closed using 3- O chromic in subcuticular fashion. Dermabond was applied. Following this, a speculum was placed in the vagina. The cervix was seen to be normal. The anterior lip of the cervix was grasped with a sharp-toothed tenaculum. The uterus was sounded to 8 cm. The cervix was serially dilated with Hegar dilators. . A hysteroscope was placed into the endometrial cavity. The endometrial cavity was seen to be normal. There were no polyps or fibroids. The hysteroscope was then removed. Endometrial curettage was done with a sharp curette. Small amount of endometrial tissue was obtained. Endometrial tissue was sent to pathology. The sharp-toothed tenaculum was removed. There was no bleeding from the endometrial cavity or cervix. The patient was then placed supine and awakened and taken to the PACU. Postop condition: stable EBL: 5 cc Sponge and instruments counts were normal x 2 Complications: none
[2025-01-04] MEDS: ondansetron 2 mg/ML SDV 2 mL 4 MG IVP (09:47)
[2025-01-04] MEDS: diphenhydrAMINE 50 mg/mL SDV 1mL 12.5 MG IVP (10:42)
--- NOTE | 2025-01-04 10:50 | ANE.PACU2 ---
Inpatient post-anesthesia follow up: Airway intact: Yes Vital signs: Temperature 97.7 F Pulse Rate 77 Respiratory Rate 16 Blood Pressure 102/70 Pulse Oximetry 100 Oxygen Delivery Me thod Room Air Oxygen Flow Rate Fraction of Inspir ed Oxygen Hydration adequate: Yes Nausea and vomiting: No Pain level: 1 Mental status: Baseline
== END 2025-01-04 10:54 | disposition home or self-care (01) ==
PROVIDERS: PCP Family Medicine; Visit Provider Obstetrics & Gynecology
PROC: (CPT 58661; principal; 2025-01-04 07:00)
PROC: 0UJD8ZZ Inspection of Uterus and Cervix, Via Natural or Artificial Opening Endoscopic (ICD-10-PCS; CPT 58555; 2025-01-04 07:00)
DX: Z30.2 Encounter for sterilization (principal); R56.9 Unspecified convulsions; J45.909 Unspecified asthma, uncomplicated
CPT/HCPCS: 58661; 58558; 81025; 88302; 88305; A4216; J1100; J1171; J1200; J1885; J2250; J2371; J2405; J2704; J3010; J3490; J7030; J9999